=== PATIENT | male | born 1975 | race Two or more races ===

== ENCOUNTER 2025-03-04 02:28 | Inpatient (IN) | payer MEDICAID, SELFPAY ==
[2025-03-04] VITALS (13 sets, daily range): BP systolic 103–149; BP diastolic 72–113; PULSE 56–107; RESP 18–93; TEMP 36.4–36.7; O2SAT 92–98; BMI 22.9
--- NOTE | 2025-03-04 02:40 | EKG_ITS ---
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: : 1975 Requested By: ED Temporary Provider Order Number: [id number] Reading MD: ED Temporary Provider Measurements Intervals [place] Rate: 104 P: 59 NC: 171 QRS: -35 QRSD: 192 T: 93 QT: 397 QTc: 524 Interpretive Statements SINUS TACHYCARDIA LEFT ATRIAL ENLARGEMENT [-0.15mV P-WAVE IN V1/V2] INDETERMINATE AXIS LEFT BUNDLE BRANCH BLOCK [120+ ms QRS DURATION, 80+ ms Q/S IN V1/V2, 85+ ms R IN I/aVL/V5/V6] Compared to ECG 02/07/2020 16:38:37 Indeterminate axis now present Left bundle-branch block now present Sinus rhythm no longer present Intraventricular conduction delay no longer present /store/S0/[id number].pdf
--- NOTE | 2025-03-04 02:47 | PD.EDSOB ---
ED SOB =RME/HPI General Chief Complaint: Shortness of Breath/Dyspnea Stated Complaint: SOB Time Seen by Provider: 03/04/25 02:49 Arrival date/time: 03/04/25 02:28 RME / HPI RME / HPI Narrative: CC: Shortness of Breath Patient is a 50 year old male with a past medical history of hypertension, CHF HFrEF 20% (2019) w/ dilated cardiomyopathy w/ sever global hypokinesis, mild aortic, pulmonic and mild to moderate mitral regurgitation, moderate PHTN, hx of asthma, history of substance use disorder w/ meth and alcohol use disorder who presented via EMS with chief complain of shortness of breath that awake patient up from sleep. Patient stated shortness of breath has been on going for several days occurring at rest with some swelling of legs. Patient denied chest pain. Denied cough, fever or chills at home. Denied recent alcohol or illicit drug use. Patient deneid diarrhea. Denied hematemesis or hemotysis. No hematochezia or Melena in stool. Denied any syncope. Related Data Home Medications ?Medication ?Instructions ?Recorded ?Confirmed lisinopril 20 mg tablet 20 mg PO .QD 03/04/25 03/04/25 Previous Rx's ?Medication ?Instructions ?Recorded lisinopril 2.5 mg tablet 2.5 mg PO QDAY #30 tabs 02/08/20 Held on 03/04/25. Instructions: Doctor's Order Allergies Allergy/AdvReac Type Severity Reaction Status Date / Time No Known Allergies Allergy Verified 01/09/24 17:16 ED Exam Narrative Physical exam: General Appearance: Alert & Oriented X3, thin male who is lying in bed in no acute distress HEENT: Skull symmetrical and atraumatic. Conjunctivae pin and moist. Pupils equal, round, reactive to light and accommodation (PERRL). External ear without lesion or discharge. Straight, nares patient, mucosa pink, no discharge. Cardio: Tachy Rate and unable to appreciate S1 or S2 as there is a loud continuos murmur at sternal pulmonic aortic and mitral area. No bruits on carotid auscultation. Mild peripheral edema on lower extremities. Lungs: Symmetric with good expansion. Chest and back non-tender. Breath sounds vesicular without crackles, wheezing or rhonchi Abdomen: Non-tender, Non-distended, enlarged liver, Normal Reactive Bowel Sounds Neuro: Alert, cooperative, oriented to person, place, and time. Speech clear. CN grossly intact. Upper motor strength 5/5 and Lower motor strength 5/5. Sensation intact. Course Course Course Narrative: cbc cmp troponin ekg chest x-ray chest angio BNP Quality Measures none Orders Category Date Time Status CT Screening NOW Care 03/04/25 02:[address] Screening NOW Care 03/04/25 03:55 Completed EKG (ED ONLY) *Do not use* NOW Care 03/04/25 02:40 Completed Insert IV NOW Care 03/04/25 02:35 Active Straight [In and Out Catheter] X1 Care 03/04/25 02:[address] abdomen pelvis w con Stat Exams 03/04/25 03:[address] angio chest Stat Exams 03/04/25 02:59 Taken EKG (ED Only) Stat Exams 03/04/25 02:40 Draft US gall bladder Stat Exams 03/04/25 03:33 Taken US venous doppler LE BI Stat Exams 03/04/25 03:51 Taken XR chest 1V portable Stat Exams 03/04/25 03:30 Taken Alcohol, Blood Medical Stat Lab 03/04/25 02:50 Completed B-Type Natriuretic Peptide Stat Lab 03/04/25 02:50 Completed Bilirubin,Direct Stat Lab 03/04/25 02:50 Completed CBC Stat Lab 03/04/25 02:50 Completed Comprehensive Metabolic Panel Stat Lab 03/04/25 02:50 Completed D-Dimer Stat Lab 03/04/25 03:51 Ordered Drug Screen,Urine Stat Lab 03/04/25 02:45 Completed Free T4 (Free Thyroxine) Stat Lab 03/04/25 05:39 Ordered Hepatitis Acute Panel Stat Lab 03/04/25 02:50 Received LDH (Lactate Dehydrogenase) Stat Lab 03/04/25 02:50 Completed Lipase Stat Lab 03/04/25 02:50 Completed Magnesium Stat Lab 03/04/25 02:50 Completed Thyroid Stimulating Hormone Stat Lab 03/04/25 02:50 Completed Troponin I Stat Lab 03/04/25 02:50 Completed Troponin I Stat Lab 03/04/25 07:00 Ordered UA, C/S IF [Urinalysis, C/S if Indicated] Stat Lab 03/04/25 02:45 Completed Furosemide Inj [Lasix Inj] Med 03/04/25 03:53 Discontinued 80 mg IVP X1 ONE Metoprolol Tartrate [Lopressor] Med 03/04/25 02:56 Discontinued 25 mg PO X1 ONE Morphine* Inj Med 03/04/25 03:53 Discontinued 2 mg IV X1 ONE Nitroglycerin Oint 2% [Nitro-paste Oint 2%] Med 03/04/25 03:53 Discontinued 2 inch TOP X1 ONE Vital Signs Vital signs: Vital Signs Pulse Rate 107 H 03/04/25 02:33 Respiratory Rate 18 03/04/25 02:33 Blood Pressure 149/112 H 03/04/25 02:33 Pulse Oximetry (%) 98 03/04/25 02:33 Oxygen Delivery Method Room Air 03/04/25 02:33 Shortness of Breath / Dyspnea Patient data External records reviewed:: [facility] previous records Clinical information provided by:: patient Social determinants that could affect healthcare access:: substance use (hx of meth and alcohol use disorder ) Patient has the following chronic illnesses:: hypertension, CHF HFrEF 20% (2019) w/ dilated cardiomyopathy w/ sever global hypokinesis, mild aortic, pulmonic and mild to moderate mitral regurgitation, moderate PHTN, hx of asthma, history of substance use disorder w/ meth and alcohol use disorder How is presenting disease/condition affected by chronic disease/condition?: exacerbated by (CHF) Evaluation data The following diagnostics were reviewed and interpreted by me:: lab results and radiology exam(s) Lab and/or radiology exams considered but not ordered:: None Interpretation Summary: Patient has a past medical history of CHF HFrEF 20% (2019) and substance use disorder of alcohol use/meth who presented with a chief complain of shortness of breath. Loud murmur noted on physical exam, jvd, peripheral edema, and possible hematomegaly noted on physical exam as well. Concern for CHF exacerbation, previous Echo in 2019 noted to have an EF of 20% given CT Chest images of pleural effusion, cardiomegaly, and elevated BNP. CT chest anigo no PE or aortic dissection noted. Cardiovascular congestion on right ventricle, likely extending into the liver. US gallbladder-no CBC or stones noted. lasix 80 mg IV X 1 #CHF exacerbation HFrEF 20% (2019) Medications / Prescriptions Medications or Prescriptions considered but not ordered:: None Medication administrations:: Medication Administration History Discontinued Medications Furosemide (Furosemide Inj 10 Mg/Ml 4ml Vial) 80 mg IVP X1 ONE Stop: 03/04/25 03:54 Last Admin: 03/04/25 04:33 Dose: 80 mg Documented By: WHITLEY Metoprolol Tartrate (Metoprolol Tartrate 25 Mg Tablet) 25 mg PO X1 ONE Stop: 03/04/25 02:57 Last Admin: 03/04/25 03:16 Dose: 25 mg Documented By: WHITLEY Morphine Sulfate (Morphine Sulf Inj 4 Mg/Ml Vial) 2 mg IV X1 ONE Stop: 03/04/25 03:54 Last Admin: 03/04/25 04:30 Dose: Not Given Documented By: WHITLEY Non-Admin Reason: Patient Refused Nitroglycerin (Nitroglycerin Oint 2% 1 Inch Packet) 2 inch TOP X1 ONE Stop: 03/04/25 03:54 Last Admin: 03/04/25 04:30 Dose: 2 inch Documented By: WHITLEY same as above Consultations Consultation(s) initiated? (list below): No Diagnosis Shortness of Breath Differential Diagnosis: congestive heart failure, asthma with exacerbation and pulmonary embolism Most likely diagnosis given after review of the tests above:: Patient has a past medical history of CHF HFrEF 20% (2019) and substance use disorder of alcohol use/meth who presented with a chief complain of shortness of breath. Loud murmur noted on physical exam, jvd, peripheral edema, and possible hematomegaly noted on physical exam as well. Concern for CHF exacerbation, previous Echo in 2019 noted to have an EF of 20% given CT Chest images of pleural effusion, cardiomegaly, and elevated BNP. CT chest anigo no PE or aortic dissection noted. Cardiovascular congestion on right ventricle, likely extending into the liver. US gallbladder-no CBC or stones noted. lasix 80 mg IV X 1 #CHF exacerbation HFrEF 20% (2019) Admission Indicated Admission indicated?: indicated Admission Request Was there a request for admission?: Yes Admission Attestation Admission request attestation: Discussed case with Dr. James from Hospitalist service regarding admission. Discussed patients ED course, exam findings, labs, and radiology results. The Hospitalist agrees to accept the patient for admission. Disposition Plan Disposition Plan: Admit Discharge Plan Plan Patient Disposition: Admit Acute Care w/in Hospital Prescriptions/Referrals Prescriptions/Med Rec: No Action lisinopril 2.5 mg Tablet 2.5 mg PO QDAY Qty: 30 0RF lisinopril 20 mg tablet 20 mg PO .QD Patient Comments: TAKE 1 TABLET BY MOUTH EVERY DAY FOR 90 DAYS Referrals: No Primary/Family,Physician [Primary Care Provider] - In 1 week Problem List Clinical Impression: Acute exacerbation of CHF (congestive heart failure) Patient/Caregiver Discharge Instructions Print Language: Citizen Of [place] Stand Alone Forms: Deandra Award Info., Patient Portal Info Letter
[2025-03-04 02:58] LABS: Collection Type, Urine Clean Catch
--- NOTE | 2025-03-04 02:59 | XR_ITS ---
Examination: CTA chest with intravenous contrast 2-D reconstructions 3-D reconstructions, vascular Date and time of exam: March 04, 2025, 0403 hours INDICATIONS: Shortness of breath chest pain beginning 2 months ago CTDI: vol (mGy) 15.01 DLP: (mGycm) 328 Technique: Multiple axial sections of the thorax have been obtained. 3 mm slice thickness, from below the hemidiaphragms to above the apices of the lungs. Mediastinal and lung density settings have been obtained. 2-D sagittal and coronal reconstructions. 3-D angiographic renderings, 3-D volume renderings, 3D post processing, vascular maximum intensity projections obtained. Contrast administered is 100 cc Isovue-370. Low dose protocols were performed. One or more of the following dose reduction techniques were used; automated exposure control, adjustment of the mA and/or KV according to patient size, use of iterative reconstruction technique. Findings: No thoracic aortic aneurysm dilatation, thoracic aortic opacification is poor Pulmonary artery segments are not enlarged No pulmonary artery emboli Minimal right pleural fluid Moderate enlargement cardiac contour with vascular congestion and subtle edema at the lung bases Please see the CT abdomen pelvis report Mild thoracic spondylosis IMPRESSION: Mild heart failure Negative for pulmonary artery emboli Minimal right pleural fluid
[2025-03-04 03:08] LABS: Bilirubin,Urine 1+ (Negative); Blood,Urine Trace (Negative); Clarity,Urine Clear (Clear/Hazy); Color,Urine Yellow (Lt Yel-Yel); Culture Indicated,Urine Not Indicated; Glucose, Urine Negative (Negative); Hyaline Casts,Urine < 1 /hpf (0-1); Ketones,Urine Negative (Negative); Leukocyte Esterase,Urine Negative (Negative); Nitrite,Urine Negative (Negative); PH,Urine 6.5 (5.0-7.0); Protein,Urine 3+ (Neg - Trace); RBC,Urine 5 /hpf (0-3); Specific Gravity,Urine 1.031 (1.001-1.035); Squamous Epithelial Cell,Urine < 1 /hpf (0-5); Urobilinogen,Urine 4.0 mg/dL (0.0-1.0); WBC,Urine 2 /hpf (0-5)
[2025-03-04 03:10] LABS: Basophils # (Auto) 0.1 Thou/mm3 (0.0-0.2); Basophils % (Auto) 1 % (0-2.5); Eosinophils # (Auto) 0.2 Thou/mm3 (0.0-0.5); Eosinophils % (Auto) 2 % (0-10); Hematocrit 46.8 % (41.0-53.0); Hemoglobin 15.8 g/dL (13.5-16.0); Immature Granulocytes Auto 0.02 Thou/mm3 (0.00-0.00); Lymphocytes # (Auto) 2.1 Thou/mm3 (1.0-4.8); Lymphocytes % (Auto) 28 % (10-50); Mean Corpuscular HGB Conc 33.8 g/dl (31.0-37.0); Mean Corpuscular Hemoglobin 30.4 pg (25.0-35.0); Mean Corpuscular Volume 90 fL (80-100); Monocytes # (Auto) 0.6 Thou/mm3 (0.0-0.8); Monocytes % (Auto) 8 % (0-12); Neutrophils # (Auto) 4.6 Thou/mm3 (1.8-7.7); Neutrophils % (Auto) 61 % (37-80); Nucleated Red Blood Cell # 0.00 Thou/mm3 (0.00-0.00); Nucleated Red Blood Cell % 0 /100 WBC (0); Platelet Count 238 Thou/mm3 (140-440); RDW Standard Deviation 50.2 fL (35.1-43.9); Red Blood Count 5.20 Miln/mm3 (4.50-5.90); White Blood Count 7.5 Thou/mm3 (3.8-10.6)
[2025-03-04 03:14] LABS: Amphetamine/Methamp Scrn,U Negative (Negative); Barbiturate Screen,Urine Negative (Negative); Benzodiazepines Screen,Urine Negative (Negative); Benzoylecgonine Screen, Ur Negative (Negative); Fentanyl Screen,Urine Negative (Negative); Opiate Screen,Urine Negative (Negative); THC Screen,Urine Negative (Negative)
[2025-03-04] MEDS: METOPROLOL TARTRATE 25 MG TABLET PO (03:16)
[2025-03-04 03:28] LABS: Alanine Aminotransferase 24 U/L (10-49); Albumin, Serum 4.3 gm/dL (3.5-5.0); Albumin/Globulin Ratio 1.8 (1.2-2.2); Alcohol, Blood Medical < 3.0 mg/dL (0-10.0); Alkaline Phosphatase 177 U/L (46-116); Anion Gap 11 (7-16); Aspartate Amino Transferase 35 U/L (0-34); BUN/Creatinine Ratio 14 Ratio (12-20); Bilirubin,Total 1.8 mg/dL (0.3-1.2); Blood Urea Nitrogen 18 mg/dL (9-23); Calcium 9.1 mg/dL (8.3-10.6); Calcium (Corrected) 9.1 mg/dL (8.5-10.1); Carbon Dioxide 23.0 mMol/L (20.0-31.0); Chloride 105 mMol/L (98-107); Creatinine (Component) 1.3 mg/dL (0.6-1.3); Estimated Creatinine Clearance 69.0 mL/min (>60); Globulin 2.4 gm/dL (2.3-3.5); Glucose 109 mg/dL (74-106); LDH (Lactate Dehydrogenase) 315 U/L (120-246); Lipase 44 U/L (12-53); Magnesium 1.9 mg/dL (1.6-2.6); Osmolality,Calculated 280 (275-295); Potassium 4.4 mMol/L (3.4-5.1); Sodium 139 mMol/L (136-145); Total Protein 6.7 gm/dL (5.7-8.2); eGFR > 60 See Note
--- NOTE | 2025-03-04 03:30 | XR_ITS ---
EXAMINATION: AP chest single view TECHNIQUE: AP portable upright chest single view Date and time: March 04, 2025, 0332 hours, comparison February 22, 2020 INDICATIONS: Shortness of breath chest pain today. FINDINGS: Mild heart failure Moderate enlargement cardiac contour, prominent vascular congestion with perihilar basilar edema Prominent osteopenia IMPRESSION: Mild heart failure
[2025-03-04 03:31] LABS: Troponin I 0.049 ng/mL (0.0-0.045)
--- NOTE | 2025-03-04 03:33 | XR_ITS ---
Examination: Abdomen sonogram, Limited Date and time of exam: March 04, 2025, 0447 hours INDICATIONS: Elevated bilirubin on laboratory examination today Technique: Real-time rowan scale transabdominal sonographic images of the upper abdomen obtained. Findings: Internal debris in the gallbladder consistent with sludge There is fluid around the gallbladder wall with thickening of the gallbladder wall at least 38 mm Common bile duct 0.3 cm Pancreatic head 2.3 cm Hepatomegaly 17.4 cm fatty infiltration Normal hepatopetal portal venous flow Patent IVC IMPRESSION: Gallbladder sludge, negative for gallstones Gallbladder wall is thickened with fluid around the gallbladder which may relate to ascites, clinical correlation advised As clinically warranted, HIDA scan or MRCP follow-up would best assess for cholecystitis
[2025-03-04 03:49] LABS: B-Type Natriuretic Peptide > 3280 pg/mL (0-100)
--- NOTE | 2025-03-04 03:51 | XR_ITS ---
Examination: Venous duplex lower extremity sonogram, bilateral. Date and time of exam: March 04, 2025, 0455 hours INDICATIONS: Right leg swelling and pain beginning 5 days ago with shortness of breath Technique: Multiple sonographic images of the deep venous system have been obtained. B-mode/2-D grayscale imaging of vascular structures and Doppler spectral analysis (waveforms) and color performed Both legs are examined. Findings: Deep venous systems do not demonstrate abnormal echogenicity. All visualized deep veins exhibit compressibility. Impression: No DVT demonstrated
--- NOTE | 2025-03-04 03:55 | XR_ITS ---
Examination: CT abdomen with intravenous contrast CT pelvis with intravenous contrast 2-D coronal reconstructions 2-D sagittal reconstructions Date and time of exam: March 04, 2025, 0404 hours INDICATIONS: Onset abdominal pain today. CTDI: vol (mGy) 6.46 DLP: (mGycm) 377 Technique: Multiple axial sections of the abdomen and pelvis have been obtained. 64 slice high-resolution scanner used. 3 mm axial sections have been obtained, post intravenous injection 60 cc Isovue-370 2-D sagittal, coronal reconstructions obtained. Low dose protocols were performed. One or more of the following dose reduction techniques were used; automated exposure control, adjustment of the mA and/or KV according to patient size, use of iterative reconstruction technique. Findings: Small right pleural effusion, moderate enlargement cardiac contour with vascular congestion Fatty infiltration throughout the liver the liver is irregular in contour Spleen not enlarged Mild ascites Gallbladder wall appears thickened No pancreatic mass Aorta is normal in size No bowel obstruction Scarring involving the kidneys No diverticulitis Normal appendix Free fluid in the pelvis Urinary bladder intact Mild prostatomegaly Moderate osteopenia IMPRESSION: Primary bowel cellular disease Mild ascites. Gallbladder wall appears thickened and edematous, consider HIDA scan or MRCP follow-up
[2025-03-04] MEDS: NITROGLYCERIN OINT 2% 1 INCH PACKET 2 INCH TOP (04:30)
[2025-03-04] MEDS: FUROSEMIDE INJ 10 MG/ML 4ML VIAL 80 MG IVP (04:33)
[2025-03-04 04:44] LABS: Bilirubin,Direct 0.9 mg/dL (0.0-0.3); Thyroid Stimulating Hormone 5.97 uIU/mL (0.55-4.78)
--- NOTE | 2025-03-04 04:59 | PRELIM_ITS ---
CT angiogram of the chest with intravenous contrast (axial sections with sagittal and coronal reformats) March 04, 2025 0404 hours Clinical History: SOB Technique:Helical axial sections with sagittal and coronal reformats of the chest were obtained with intravenous contrast. Iterative reconstruction technique was employed to reduce patient radiation exposure. 3D/MIP reconstructed images were also provided. Comparison: No prior study is available for comparison. Findings: There is no filling defect within the pulmonary artery divisions to suggest pulmonary thromboembolism. The mediastinum demonstrates no evidence of mass or lymphadenopathy. The thoracic aorta is unremarkable. There is no pericardial effusion. There is mild cardiomegaly. Bibasilar dependent atelectasis is present.There is a calcified nodule in the left upper lobe, measuring 3.5 mm, with smooth margin. There is a small right pleural effusion.No evidence of ppneumothorax. The osseous structures are unremarkable. Impression: No CT evidence of pulmonary thromboembolism . Small right pleural effusion. Mild cardiomegaly. Other findings as described above. Report on CT Abdomen & Pelvis w/ Contrast to follow. Report Electronically Signed By: Ashley Taylor 03/04/2025 4:57:57 AM [EST]
--- NOTE | 2025-03-04 06:01 | PRELIM_ITS ---
CT scan of the abdomen and pelvis with intravenous contrast (axial sections with sagittal and coronal reformats) March 04, 2025 0404 hours Clinical History: Abdominal pain. No prior study is available for comparison. Findings: There is trace right pleural effusion. Subsegmental atelectasis is noted at the lung bases. There is mild interstitial septal thickening in the lungs, which may represent interstitial pulmonary edema. There is moderate cardiomegaly. There is fatty infiltration of the liver. The gallbladder is partially contracted and demonstrates apparent wall thickening, with trace pericholecystic fluid. Nonspecific perinephric fat stranding is noted bilaterally. There are punctate non-obstructing bilateral renal calculi. There is no ureteric calculus or hydroureteronephrosis. Multifocal scarring is noted in both kidneys, which may represent sequelae of chronic pyelonephritis. The pancreas, spleen and adrenals are unremarkable. No evidence of bowel obstruction. A moderate amount of fecal material is present in the colon. The appendix is within normal limits ( axial images 129- 134/280 ) . There are multiple colonic diverticula without evidence of diverticulitis. There is no mesenteric or retroperitoneal adenopathy. The urinary bladder is incompletely distended at the time of the examination and appears mildly thick walled. There is minimal ascites. There is no free air or abscess. The osseous structures are unremarkable. Impression: No evidence of bowel obstruction, free air or abscess. Minimal ascites. Partially contracted gallbladder with apparent wall thickening and trace pericholecystic fluid, likely apparent due to fluid overload status ; however, the possibility of acute cholecystitis cannot be entirely excluded. Recommend further evaluation with sonography, if clinically indicated. Features of congestive heart failure. Other findings as described above. Report Electronically Signed By: Ashley Taylor 03/04/2025 6:01:19 AM [EST]
--- NOTE | 2025-03-04 06:15 | ECHO_ITS ---
Patient Info Name: Yash Lo Age: 50 years : 1975 Gender: Male Ht: 178 cm Wt: 73 kg BSA: 1.89 m2 BP: 114 / 75 mmHg Heart Rhythm: Sinus Rhythm Exam Date: 03/04/2025 1:24 PM Admit Date: 03/04/2025 Site: [facility] Patient Status: I Technical Quality: Fair Exam Type: CA echo doppler complete Sap Bw Architect: Priya Joshi Ordering Physician: Keyon Crouch Study Info Indications CHF exacerbation - Primary Location: [id number] Left Ventricular Outflow Tract Name Value Normal LVOT 2D LVOT Diameter 1.8 cm LVOT Doppler LVOT Peak Velocity 72 cm/s LVOT Mean Gradient 1 mmHg LVOT VTI 12 cm LVOT VTI/AV VTI Ratio 0.6 LVOT Stroke Volume 29 ml Pulmonic Valve Name Value Normal PV Doppler PV Peak Velocity 92 cm/s Mitral Valve Name Value Normal MV Annular TDI MV Septal e' Velocity 1.7 cm/s MV Lateral e' Velocity 6.1 cm/s MV e' Average 3.85 cm/s Tricuspid Valve Name Value Normal TV Regurgitation Doppler TR Peak Velocity 247 cm/s Estimated PAP/RSVP RA Pressure 15 mmHg <=5 PA Systolic Pressure 4,539 mmHg <36 RV Systolic Pressure 39 mmHg <36 TV Annular TDI TV Lateral Tammie s' Velocity 10.7 cm/s >=9.5 Aorta Name Value Normal Ascending Aorta Ao Root Diameter (MM) 2.3 cm Ao Root Diam Index (MM) 1.2 cm/m2 Aortic Valve Name Value Normal AV 2D/MM AV Cusp Sep (MM) 2.0 cm AV Doppler AV Peak Velocity 112 cm/s AV Mean Gradient 2 mmHg AV VTI 21 cm AV Area (Cont Eq VTI) 1.4 cm2 >=3.0 AV Area (Cont Eq Gerson) 1.6 cm2 AV DI (Gerson) 0.65 AV Regurgitation 2D LVOT Area 2.5 cm2 Ventricles Name Value Normal LV Dimensions 2D/MM IVS Diastolic Thickness (2D) 0.6 cm 0.6-1.0 LVID Diastole (2D) 8.5 cm 4.2-5.8 LVIW Diastolic Thickness (2D) 0.8 cm 0.6-1.0 LVID Systole (2D) 7.4 cm 2.5-4.0 LVOT Diameter 1.8 cm LV Mass (2D Cubed) 296.94 g 88.00-224.00 LV Mass Index (2D Cubed) 157 g/m2 49-115 Relative Wall Thickness (2D) 0.19 <=0.42 IVS/LVIW Diastolic Thickness (2D) 0.75 0.00-1.50 LV Fractional Shortening/Ejection Fraction 2D/MM LV Fractional Shortening (2D) 13 % 25-43 LV EF (2D Teichholz) 27 % LV Diastolic Volume (4C MOD) 267 ml LV EF (4C MOD) 16 % LV Diastolic Volume (2C MOD) 335 ml LV EF (2C MOD) 18 % LV Diastolic Volume (BP MOD) 306 ml 62-150 LV Diastolic Volume Index (BP MOD) 161 ml/m2 34-74 LV Systolic Volume (BP MOD) 251 ml 21-61 LV Systolic Volume Index (BP MOD) 132 ml/m2 11-31 LV EF (BP MOD) 18 % 52-72 LV Diastolic Length (4C) 8.7 cm LV Systolic Length (4C) 9.1 cm LV Stroke Volume (4C MOD) 42 ml RV Dimensions 2D/MM TV Lateral Tammie s' Velocity 10.7 cm/s >=9.5 Atria Name Value Normal LA Dimensions LA Volume (4C A-L) 93 ml LA Volume (BP A-L) 105 ml Left Ventricle Left ventricular chamber dimension is severely enlarged. Left ventricular systolic function is severely reduced with visually estimated ejection fraction of 10-15%. There is normal geometry noted in the left ventricle. Left ventricular segmental wall motion is normal. There is indeterminate diastolic function in the left ventricle. Right Ventricle Right ventricular chamber dimension is mildly enlarged. Right ventricular systolic function is normal. Left Atrium Left atrial chamber dimension is normal. Right Atrium Right atrial chamber dimension is normal. Aortic Valve The aortic valve is trileaflet. There is no aortic valve sclerosis. There is no aortic valve stenosis with a peak velocity of 112 cm/s, mean gradient of 2 mmHg, and aortic valve area of 1.4 cm2. There is trace aortic valve regurgitation. Pulmonic Valve The pulmonic valve is normal. There is no pulmonic valve stenosis. There is no pulmonic regurgitation. Mitral Valve The mitral valve has normal leaflets. There is no mitral valve stenosis. There is mild to moderate mitral valve regurgitation. Tricuspid Valve The tricuspid valve leaflets are normal. There is no tricuspid valve stenosis. There is mild tricuspid valve regurgitation. Pulmonary hypertension, estimated pulmonary arterial systolic pressure is 4539 mmHg and systemic blood pressure of 114 mmHg in systole. Pericardium/Pleural The pericardium appears normal. There is no pericardial effusion. No pleural effusion visualized. Inferior Vena Cava Dilated inferior vena cava with >50% collapse upon inspiration consistent with normal right atrial pressure, 15 mmHg. Aorta The aortic measurements are indexed to age and body surface area. Summary 1. The echocardiogram is normal by two-dimensional, color flow imaging, and Doppler interrogation. 2. Left ventricle size is severely enlarged and systolic function is severely reduced. Estimated ejection fraction is 10-15%. There is indeterminate diastolic function. 3. Right ventricle chamber size is mildly enlarged and systolic function is normal. Estimated RVSP is 45- 50 mm hg. 4. There is mild to moderate mitral valve regurgitation. mild TR. Trace AI. 5. Dilated IVC with estimated RA pressure 15 mmHg. Trace to small pericardial effusion with no tamponade. Report Signatures Finalized by German Sue on 03/04/2025 04:28 PM
--- NOTE | 2025-03-04 06:20 | PD.RESHP ---
Documentation for date of: 03/04/25 [facility] History of Present Illness History of present illness: 50-year-old male with a history of hypertension, CHF (LVEF 20% due to dilated cardiomyopathy), mild aortic and pulmonic regurgitation, [id number] mitral regurgitation, moderate pulmonary hypertension, asthma, and substance use disorder (methamphetamine and alcohol) presents via EMS with a chief complaint of shortness of breath that woke him from sleep. His symptoms have been ongoing for several days, occurring at rest, and are associated with bilateral leg swelling, which began 5 days ago with ankle edema. He is able to walk 1 mile but is unsure if he can manage a flight of stairs. He denies chest pain, cough, fever, chills, recent alcohol or drug use, diarrhea, hematemesis, hemoptysis, or changes in stool (no hematochezia or melena), and has had no episodes of syncope. ED course: Initial vitals include T 98.1, BP 149/112, HR 107, RR 18, 98% on room air. CBC unremarkable. CMP shows creatinine 1.3, T. bili 1.8, T. bili 0.9, AST 35, alk phos 177, lactate dehydrogenase 315, troponin 0.049, BNP greater than 3280. TSH 5.97. In ED patient received metoprolol 25 mg, nitroglycerin patch, morphine 2 mg, furosemide 80 mg. Past medical history: As stated above. Allergies: NKDA Family history: Noncontributory. Social history: No alcohol use for past month however used extensive alcohol previously, unsure of smoking, used meth for 10 years and last used 5 months ago. Patient admitted for acute exacerbation of CHF. Review of Systems Review of Systems Narrative Review of Systems: All systems reviewed negative unless stated otherwise above. Exam Vital Signs Temp Pulse Resp BP Pulse Ox O2 Del Method 97.8 F 77 19 139/103 H 96 Room Air 03/04/25 04:44 03/04/25 04:44 03/04/25 04:44 03/04/25 04:44 03/04/25 04:44 03/04/25 04:44 Narrative Exam General: AOx3, no acute distress, able to speak full sentences, Hungarian speaking HEENT: NC/AT, mucous membranes moist, bilateral sclera anicteric Cardiovascular: regular rate and rhythm, S1/S2 present, tricuspid regurg Pulmonary: clear to auscultation bilaterally, no rales/rhonchi/wheezes Abdominal: soft, non-tender, non-distended, no rebound/guarding, normal bowel sounds present, significant hepatomegaly Musculoskeletal: normal ROM, bilateral 2+ pitting edema to mid shins Skin: warm and dry, intact, no rashes, Neuro: CN II-XII intact, no focal deficits Results: Labs 03/05/25 05:49 03/05/25 05:49 Labs: Short CBC 03/04/25 Range/Units 02:50 WBC 7.5 (3.8-10.6) Thou/mm3 Hgb 15.8 (13.5-16.0) g/dL Hct 46.8 (41.0-53.0) % Plt Count 238 (140-440) Thou/mm3 BMP 03/04/25 02:50 Sodium 139 Potassium 4.4 Chloride 105 Carbon Dioxide 23.0 BUN 18 Creatinine 1.3 Glucose 109 H Calcium 9.1 Cardiac Enzymes 03/04/25 Range/Units 02:50 Troponin I 0.049 H* (0.0-0.045) ng/mL Liver Function 03/04/25 Range/Units 02:50 Total Bilirubin 1.8 H (0.3-1.2) mg/dL Direct Bilirubin 0.9 H (0.0-0.3) mg/dL AST 35 H (0-34) U/L ALT 24 (10-49) U/L Alkaline Phosphatase 177 H (46-116) U/L Albumin 4.3 (3.5-5.0) gm/dL Urine 03/04/25 Range/Units 02:45 Urine Color Yellow (Lt Yel-Yel) Urine Clarity Clear (Clear/Hazy) Urine pH 6.5 (5.0-7.0) Ur Specific [place] 1.031 (1.001-1.035) Urine Protein 3+ A (Neg - Trace) Urine Glucose (UA) Negative (Negative) Quality Measures Quality Measures VTE prophylaxis Medications Home Medications and Allergies Home Medications ?Medication ?Instructions ?Recorded ?Confirmed ?Type lisinopril 20 mg tablet 20 mg PO .QD 03/04/25 03/04/25 History Allergies Allergy/AdvReac Type Severity Reaction Status Date / Time No Known Allergies Allergy Verified 01/09/24 17:16 Visit Medications Acetaminophen (Acetaminophen 325 Mg Tablet) 650 mg PO Q6H PRN PRN Reason: Fever >100.4 or pain (1-3) Stop: 04/03/25 06:11 Dapagliflozin (Dapagliflozin Propanediol 5 Mg Tablet) 10 mg PO QAM [facility] Stop: 04/03/25 08:59 Furosemide (Furosemide Inj 10 Mg/Ml Vial 2 Ml) 40 mg IVP TID [facility] Stop: 04/03/25 11:59 Heparin Sodium (Porcine) (Heparin Sod Inj 5000 Unit/Ml Vial) 5,000 unit SC Q8HR [facility] Stop: 03/18/25 06:29 Ondansetron HCl (Ondansetron Inj 2 Mg/Ml Inj 2 Ml) 4 mg IVP Q6H PRN; Protocol PRN Reason: NAUSEA OR VOMITING Stop: 04/03/25 06:11 Sennosides (Senna Tablet) 1 tab PO QDAY [facility]; Protocol Stop: 04/03/25 08:59 Discontinued Medications Furosemide (Furosemide Inj 10 Mg/Ml 4ml Vial) 80 mg IVP X1 ONE Stop: 03/04/25 03:54 Last Admin: 03/04/25 04:33 Dose: 80 mg Metoprolol Tartrate (Metoprolol Tartrate 25 Mg Tablet) 25 mg PO X1 ONE Stop: 03/04/25 02:57 Last Admin: 03/04/25 03:16 Dose: 25 mg Morphine Sulfate (Morphine Sulf Inj 4 Mg/Ml Vial) 2 mg IV X1 ONE Stop: 03/04/25 03:54 Last Admin: 03/04/25 04:30 Dose: Not Given Nitroglycerin (Nitroglycerin Oint 2% 1 Inch Packet) 2 inch TOP X1 ONE Stop: 03/04/25 03:54 Last Admin: 03/04/25 04:30 Dose: 2 inch Assessment & Plan Plan 50-year-old male with hypertension, CHF (LVEF 20%), dilated cardiomyopathy, mild valve regurgitation, pulmonary hypertension, asthma, and substance use disorder (methamphetamine and alcohol) presents via EMS with shortness of breath. Patient admitted for acute exacerbation of CHF. #Acute CHF exacerbation Patient presenting with worsening SOB, orthonpnea need to sleep at angle, worsening LE swelling. No crackles but noted to have JVD on exam, pitting edema +2. He has past meth use, quit 5 months ago. Patient gave up drinking 1-2 months ago. Otherwise used to get drunk daily. Vitals stable, Cr 1.3, glucose 109, Mg 1.9, BNP greater than 3280. He received 80 mg IV Lasix in the ED. Echo from 02/08/2020 showed EF 20%, moderate tricuspid regurgitation, moderate pulmonary hypertension. Plan - Cardiology consulted, appreciate recommendations - Echo pending - IV lasix 40mg TID - Start dapagliflozin 10 mg daily - Daily weights - Place Vega - Strict INOs - Low sodium diet - Restrict fluid to 1.8L - Keep potassium >4, mag >2 - Daily CBC, CMP #NSTEMI, type II Patient denies any chest pain. EKG negative for any acute ischemic ST changes, rate 104, QTc 524. Troponins on admission 0.049 Plan - Trend troponins every 6 hours - Placed order after 7 AM draw if continued uptrend #Hyperbilirubinemia Br 1.8 on admission. Direct 0.9 Likely in setting of congestion and alcohol use. Anticipate improvement with diuresis. Has no abdominal pain on exam. Preliminary read negative for any stones. Plan - Daily CMP #Hx of recreational drug use #Hx of methamphetamine use Patient counseled extensively regarding recreational drug use. Reports feeling ready to quit. Referral to social service manager. Health Maintenance: Diet: Cardiac diet, fluid restriction 1.8 L GI prophylaxis: None DVT prophylaxis: Heparin 5000u SC every 8 hours Antibiotics: None CODE STATUS: Full Disposition: Telemetry Case discussed with my attending Dr. Gross, and senior resident, Dr. Jacob Crouch MD PGY-1 Attending Provider Attestation/Addendum After examination of the patient and review of the clinical data I feel that this patient needs admission to the hospital for further treatment/evaluation. Plan of care discussed with patient and is in agreement. I Francisco Gross MD, attest that I was physically present for pickard portions of evaluation, and examined patient, labs and imagings and plan of care were discussed with IM residents team, and I agree with the findings and plans documented above.
--- NOTE | 2025-03-04 06:26 | PRELIM_ITS ---
Right upper quadrant abdominal ultrasound. March 04, 2025 AT 0447 hours Clinical history: Elevated T.bili. Technique: Grayscale and color flow images of the right upper quadrant are provided. Hepatic and portal veins were also imaged with color flow images. Comparison: Correlated with prior CT abdomen and pelvis study performed earlier today. Findings: The liver is borderline enlarged, measuring 17.4 cm in length, demonstrates increased echogenicity and heterogeneous echotexture, with smooth borders. No intrahepatic biliary ductal dilatation. No gallbladder calculus is demonstrated. The gallbladder wall is thickened and edematous , measuring 4 mm. Complex internal debris is noted in the gallbladder. The common bile duct is normal in caliber at 3 mm. The pancreas is unremarkable to the extent visualized. Impression: Complex gallbladder sludge. Mild gallbladder wall thickening with edema. No evidence of cholelithiasis. The possibility of acute cholecystitis cannot be excluded. Suggest follow-up with HIDA scan, if clinically indicated. Borderline hepatomegaly with fatty infiltration. Report Electronically Signed By: Ashley Taylor 03/04/2025 6:25:25 AM [EST]
--- NOTE | 2025-03-04 06:26 | PRELIM_ITS ---
Bilateral lower extremity venous Doppler ultrasound. March 04, 2025 0455 hours Clinical history: Swelling. Technique: Duplex scan of the bilateral lower extremity deep venous systems was performed utilizing 2D grayscale imaging, Doppler spectral analysis and color flow Doppler and with compression. Comparison: No prior study is available for comparison. Findings: Alves scale, color flow and spectral Doppler evaluation of the lower extremity deep veins was performed. Right: The common femoral, superficial femoral and popliteal veins are patent and compressible. The calf veins to the extent visualized are patent. Normal respiratory variation is noted. There is no evidence of occlusive or nonocclusive thrombus. The great saphenous vein is patent at the level of the s aphenofemoral junction. Left: The common femoral, superficial femoral and popliteal veins are patent and compressible. The calf veins to the extent visualized are patent. Normal respiratory variation is noted. There is no evidence of occlusive or nonocclusive thrombus. The great saphenous vein is patent at the level of the sa phenofemoral junction. Impression: No sonographic evidence of deep venous thrombosis in both lower extremities. Report Electronically Signed By: Ashley Taylor 03/04/2025 6:25:21 AM [EST]
[2025-03-04] MEDS: HEPARIN SOD INJ 5000 UNIT/ML VIAL SC ×2 (06:39→20:43)
[2025-03-04 06:48] LABS: Hepatitis A Antibody IgM Non Reactive (Non React); Hepatitis B Core Antibody IgM Non Reactive (Non React); Hepatitis B Surface Antigen Non Reactive (Non React); Hepatitis C Antibody Non Reactive (Non React)
[2025-03-04 07:15] LABS: Glucose Estimated Average 126 mg/dL (80-131); Hemoglobin A1C 6.0 % Hgb (4.8-6.0)
[2025-03-04 07:19] LABS: Base Excess 0 (-3-3); HCO3 23 mEq/L (20-26); Inspired Oxygen, FIO2 21 %; O2 Saturation 99 % (91-98); PCO2 32 mmHg (32.0-48.0); PO2 95 mmHg (83-108); pH, Arterial 7.46 (7.35-7.45)
[2025-03-04 07:21] LABS: Allen Test Performed/OK; Puncture Site Left Radial
[2025-03-04 07:36] LABS: D-Dimer 522 ng/mL (<600)
[2025-03-04 08:00] LABS: Free T4 (Free Thyroxine) 1.51 ng/dL (0.89-1.76)
[2025-03-04 08:10] LABS: Troponin I 0.050 ng/mL (0.0-0.045)
--- NOTE | 2025-03-04 08:19 | ESPR_ITS ---
Documentation for date of: 03/04/25 Subjective Subjective Interval history: pt seen and examined at bedside he states that his breathing is much improved from when he came in, but that he is still unable to tolerate laying flat continues with IV diuresis, lasix bid marked improvement of BLE, edema to the ankles 2+. pt states that he was unable to ever go to [facility] who he was refered to in [place] because it was too far echo with 10-15 ef today Exam Vital Signs Temp Pulse Resp BP Pulse Ox O2 Del Method 97.9 F 74 20 138/113 H 97 Room Air 03/04/25 06:38 03/04/25 06:38 03/04/25 06:38 03/04/25 06:38 03/04/25 06:38 03/04/25 06:38 Narrative Exam GENERAL: no acute distress, AAO x3, well nourished. HEENT: Head AT/ NC. Mucous membranes moist. PERRL. JVD at the scm NECK: Supple, no lymphadenopathy, no carotid bruits. CARDIOVASCULAR: RRR. Normal S1/S2, No m/r/g. 2 + pitting edema of bilateral LEs to the ankes RESPIRATORY: trace crackles most appreciated in the mid lung white bilaterally GASTROINTESTINAL: Abdomen soft, non tender no palpable masses. Bowel sounds present in all 4 quadrants. MUSCULOSKELETAL:? No cyanosis no visible joint swelling. NEUROLOGICAL: CN II-XII grossly intact. No focal deficits. Sensation intact, symmetric. PSYCHIATRIC: Awake and alert, not agitated, normal mood and affect. INTEGUMENTARY: No obvious rashes, no jaundice, normal turgor. Objective Labs 03/04/25 02:50 03/04/25 02:50 Labs: Laboratory Results - last 24 hr 03/04/25 03/04/25 03/04/25 02:45 02:50 06:50 WBC 7.5 RBC 5.20 Hgb 15.8 Hct 46.8 MCV 90 MCH 30.4 MCHC 33.8 RDW Std Deviation 50.2 H Plt Count 238 Neut % (Auto) 61 Lymph % (Auto) 28 [place] % (Auto) 8 Eos % (Auto) 2 Baso % (Auto) 1 Neut # (Auto) 4.6 Lymph # (Auto) 2.1 [place] # (Auto) 0.6 Eos # (Auto) 0.2 Baso # (Auto) 0.1 Immature Gran # (Auto) 0.02 H Absolute Nucleated RBC 0.00 Immature Gran % 0 Nucleated RBC % 0 D-Dimer 522 Puncture Site ABG pH ABG pCO2 ABG pO2 ABG HCO3 ABG O2 Saturation ABG Base Excess FiO2 Sodium 139 Potassium 4.4 Chloride 105 Carbon Dioxide 23.0 Anion Gap 11 BUN 18 Creatinine 1.3 Estim Creat Clear Calc 69.0 eGFR > 60 BUN/Creatinine Ratio [address] Glu mg/dL 126 Hemoglobin A1c 6.0 Calculated Osmolality 280 Calcium 9.1 Corrected Calcium 9.1 Magnesium 1.9 Total Bilirubin 1.8 H Direct Bilirubin 0.9 H AST 35 H ALT 24 Alkaline Phosphatase 177 H Lactate Dehydrogenase 315 H Troponin I 0.049 H* 0.050 H* B-Natriuretic Peptide > 3280 H* Total Protein 6.7 Albumin 4.3 Globulin 2.4 Albumin/Globulin Ratio 1.8 Lipase 44 TSH 5.97 H Free T4 1.51 Ur Collection Type Clean Catch Urine Color Yellow Urine Clarity Clear Urine pH 6.5 Ur Specific [place] 1.031 Urine Protein 3+ A Urine Glucose (UA) Negative Urine Ketones Negative Urine Blood Trace Urine Nitrite Negative Urine Bilirubin 1+ A Urine Urobilinogen (Auto) 4.0 Ur Leukocyte Esterase Negative Urine RBC 5 H Urine WBC 2 Ur Squamous Epith Cells < 1 Urine Bacteria None Hyaline Casts < 1 Ur Culture Indicated? Not Indicated Urine Opiates Screen Negative Urine Fentanyl Screen Negative Ur Barbiturates Screen Negative U Amphetamin/Meth Scrn Negative U Benzodiazepines Scrn Negative U Cocaine Metab Screen Negative U Marijuana (THC) Screen Negative Ethyl Alcohol < 3.0 Hepatitis A IgM Ab Non Reactive Hep Bs Antigen Non Reactive Hep B Core IgM Ab Non Reactive Hepatitis C Antibody Non Reactive 03/04/25 07:15 WBC RBC Hgb Hct MCV MCH MCHC RDW Std Deviation Plt Count Neut % (Auto) Lymph % (Auto) [place] % (Auto) Eos % (Auto) Baso % (Auto) Neut # (Auto) Lymph # (Auto) [place] # (Auto) Eos # (Auto) Baso # (Auto) Immature Gran # (Auto) Absolute Nucleated RBC Immature Gran % Nucleated RBC % D-Dimer Puncture Site Left Radial ABG pH 7.46 H ABG pCO2 32 ABG pO2 95 ABG HCO3 23 ABG O2 Saturation 99 H ABG Base Excess 0 FiO2 21 Sodium Potassium Chloride Carbon Dioxide Anion Gap BUN Creatinine Estim Creat Clear Calc eGFR BUN/Creatinine Ratio Glucose Estimated Ave Glu mg/dL Hemoglobin A1c Calculated Osmolality Calcium Corrected Calcium Magnesium Total Bilirubin Direct Bilirubin AST ALT Alkaline Phosphatase Lactate Dehydrogenase Troponin I B-Natriuretic Peptide Total Protein Albumin Globulin Albumin/Globulin Ratio Lipase TSH Free T4 Ur Collection Type Urine Color Urine Clarity Urine pH Ur Specific [place] Urine Protein Urine Glucose (UA) Urine Ketones Urine Blood Urine Nitrite Urine Bilirubin Urine Urobilinogen (Auto) Ur Leukocyte Esterase Urine RBC Urine WBC Ur Squamous Epith Cells Urine Bacteria Hyaline Casts Ur Culture Indicated? Urine Opiates Screen Urine Fentanyl Screen Ur Barbiturates Screen U Amphetamin/Meth Scrn U Benzodiazepines Scrn U Cocaine Metab Screen U Marijuana (THC) Screen Ethyl Alcohol Hepatitis A IgM Ab Hep Bs Antigen Hep B Core IgM Ab Hepatitis C Antibody ABG Interpretation ABG results: 03/04/25 07:15 ABG pH 7.46 H ABG pCO2 32 ABG pO2 95 ABG HCO3 23 ABG O2 Saturation 99 H ABG Base Excess 0 Quality Measures Quality Measures VTE prophylaxis Assessment & Plan Assessment Current Active Medications: Generic Name Dose Route Start Last Admin Trade Name Freq PRN Reason Stop Dose Admin Acetaminophen 650 mg 03/04/25 06:12 Acetaminophen 325 Mg Tablet PO 04/03/25 06:11 Q6H PRN Fever >100.4 or pain (1-3) Dapagliflozin 10 mg 03/04/25 09:00 Dapagliflozin Propanediol 5 Mg Tablet PO 04/03/25 08:59 QAM [facility] Furosemide 40 mg 03/04/25 12:00 Furosemide Inj 10 Mg/Ml Vial 2 Ml IVP 04/03/25 11:59 TID [facility] Heparin Sodium (Porcine) 5,000 unit 03/04/25 06:30 03/04/25 06:39 Heparin Sod Inj 5000 Unit/Ml Vial SC 03/18/25 06:29 5,000 unit Q8HR MARY Administration Ondansetron HCl 4 mg 03/04/25 06:12 Ondansetron Inj 2 Mg/Ml Inj 2 Ml IVP 04/03/25 06:11 Q6H PRN NAUSEA OR VOMITING Protocol Sennosides 1 tab 03/04/25 09:00 Senna Tablet PO 04/03/25 08:59 QDAY [facility] Protocol Plan 50-year-old male with hypertension, CHF (LVEF 20%), dilated cardiomyopathy, mild valve regurgitation, pulmonary hypertension, asthma, and substance use disorder (methamphetamine and alcohol) presents via EMS with shortness of breath. Patient admitted for acute exacerbation of CHF. 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 No crackles but noted to have JVD on exam, pitting edema +2. He has past meth use, quit 5 months ago. Patient gave up drinking 1-2 months ago. Otherwise used to get drunk daily. Vitals stable, Cr 1.3, glucose 109, Mg 1.9, BNP greater than 3280. He received 80 mg IV Lasix in the ED. Echo from 02/08/2020 showed EF 20%, moderate tricuspid regurgitation, moderate pulmonary hypertension. Plan - Cardiology consulted, appreciate recommendations , Anum[place]la Given the history of active and longstanding methamphetamine abuse patient is not a candidate for ICD placement. Patient will need to be on optimize GDMT therapy, close follow-up with [facility] and quit polysubstance abuse - Echo with ef 10-15% Left ventricle size is severely enlarged and systolic function is severely reduced with indeterminate diastolic dysfunction - IV lasix 40mg BID - Start dapagliflozin 10 mg daily - Daily weights - pt able to void independently, no rain indicated - Strict INOs - Low sodium diet - Restrict fluid to 1800mL - Keep potassium >4, mag >2 - Daily CBC, CMP -Start GDMT after acute exacerbation is resolved #NSTEMI, type II #Troponinemia Patient denies any chest pain. EKG negative for any acute ischemic ST changes, rate 104, QTc 524. Troponins on admission 0.049 Plan - Trend troponins every 6 hours - CARDS consulted, appreciate recs #Elevated Alk Phos #Elevated bilirubin Br 1.8 on admission. Direct 0.9 Likely in setting of congestion and alcohol use. Anticipate improvement with diuresis. Has no abdominal pain on exam. Preliminary read negative for any stones. GBUS with some gb wall thickening, Hep panel negative Plan - Daily CMP #Subclinical Hypothyroidism TSH 5.97 TSH 1.51 wnl - recommend outpatient follow up with pcp #Hx Polysubstance Use Disorder #Methamphetamine Use disorder #Alcohol Use disorder Utox negative Ethyl alchohol level <3 pt reports that he quit drinking ~1-2 months ago Plan - cessation counseling - consider CIWA if agitated overnight, but dont anticipate that he will enter withdrawal #Prediabetes A1c 6.0 - debt management counselor on dietary changes - consider metformin on discharge - PCP follow up Health Maintenance: Diet: Cardiac diet, fluid restriction 1.5 L GI prophylaxis: None DVT prophylaxis: Heparin 5000u SC every 12 hours Antibiotics: None CODE STATUS: Full Disposition: Telemetry Plan discussed with my attending Dr. Rut Duncan MD PGY1 Attending Provider Attestation/Addendum Patient was seen and examined. He is significantly improved symptomatically after initial diuresis. Patient admission status changed to observation today. Will continue to monitor symptoms. Decrease frequency of Lasix. I discussed with and supervised the resident physician who took care of this patient. I agree with the assessment and plan as above.
--- NOTE | 2025-03-04 08:33 | PC.NURSE ---
CALLED PROVIDER TO REPORT 2ND TROP OF 0.050, UNABLE TO MAKE CONTACT. DONNA SÁNCHEZ WAS UPDATED ON IT WHEN PT TRANSFERRED UP TO FLOOR.
--- NOTE | 2025-03-04 12:37 | PD.RESCONSUL ---
HPI Data of Consult Requesting Physician: Francisco Gross MD Admitting Provider: Francisco Gross MD Attending Provider: Francisco Gross MD Primary Care Provider: Physician No Primary/Family Consult Narrative History of present illness: Patient is a 50-year-old male with past medical history of hypertension, HFrEF 20-25%, dilated cardiomyopathy, active methamphetamine and alcohol abuse presented to [facility] with chief complaints of shortness of breath and worsening lower extremity edema. Patient was admitted to the hospital in 2019 for the same reason, found to have a HFrEF of 20%, patient at that time was actively using methamphetamine, was extensively consulted regarding side effects of substance abuse. However patient continued to using. His symptoms has been going on for last several days, acutely getting wore even at rest as well, associated with severe limitation of his daily activities. Patient also noticed lower extremity edema that was progressively getting worse. Patient stated that about a month ago he stopped drinking, however continued to active using methamphetamine. 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 He is not very compliant with the doctors, however recently was checked by PCP and was referred to get the echo which he never did, and since his symptoms continue to worsen he decided to present to ED for further evaluation. ED course CMP showed glucose of 119, T. bili 1.8 , AST 35, ALP 177, LDH 315, troponin 0.0 49, BNP above 3280, TSH 5.97 EKG showed sinus tachycardia, LBBB, QTc of 524, without significant ST changes. Chest x-ray showed significant vascular congestion, CTA was negative for PE Venous Doppler ultrasound was negative for any DVTs In ED patient received nitroglycerin patch, morphine, Lasix 80 mg and metoprolol 25 mg x 1 Patient was admitted for acute on chronic CHF exacerbation treatment management. Cardiology was consulted for further recommendations. Past medical history as above Past surgical history none Allergies NKDA Family history mother has a heart condition, following cardiology, denies any history of heart attack in the family, diabetes, or hyperlipidemia Social history patient lives with the family, daughter, and parents. Patient has a chronic alcohol abuse history, was drinking 4-5 x 24 ounces of beer daily. Stated that quitted about months ago. Active methamphetamine smoker more than 10 years. 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 HEENT: Head AT/ NC. Mucous membranes moist. PERRL. NECK: Supple, no lymphadenopathy, no carotid bruits. CARDIOVASCULAR: RRR. Normal S1/S2, No m/r/g. 1 + pitting edema of bilateral LEs. RESPIRATORY: CTAB. No wheezing, rhonchi GASTROINTESTINAL: Abdomen soft, non tender no palpable masses. Bowel sounds present in all 4 quadrants. MUSCULOSKELETAL:? No cyanosis no visible joint swelling. NEUROLOGICAL: CN II-XII grossly intact. No focal deficits. Sensation intact, symmetric. PSYCHIATRIC: Awake and alert, not agitated, normal mood and affect. INTEGUMENTARY: No obvious rashes, no jaundice, normal turgor. Results Labs 03/05/25 05:49 03/05/25 05:49 Labs: Short CBC 03/04/25 Range/Units 02:50 WBC 7.5 (3.8-10.6) Thou/mm3 Hgb 15.8 (13.5-16.0) g/dL Hct 46.8 (41.0-53.0) % Plt Count 238 (140-440) Thou/mm3 BMP 03/04/25 02:50 Sodium 139 Potassium 4.4 Chloride 105 Carbon Dioxide 23.0 BUN 18 Creatinine 1.3 Glucose 109 H Calcium 9.1 Cardiac Enzymes 03/04/25 03/04/25 Range/Units 02:50 06:50 Troponin I 0.049 H* 0.050 H* (0.0-0.045) ng/mL Liver Function 03/04/25 Range/Units 02:50 Total Bilirubin 1.8 H (0.3-1.2) mg/dL Direct Bilirubin 0.9 H (0.0-0.3) mg/dL AST 35 H (0-34) U/L ALT 24 (10-49) U/L Alkaline Phosphatase 177 H (46-116) U/L Albumin 4.3 (3.5-5.0) gm/dL Urine 03/04/25 Range/Units 02:45 Urine Color Yellow (Lt Yel-Yel) Urine Clarity Clear (Clear/Hazy) Urine pH 6.5 (5.0-7.0) Ur Specific [place] 1.031 (1.001-1.035) Urine Protein 3+ A (Neg - Trace) Urine Glucose (UA) Negative (Negative) ABG Interpretation ABG results: 03/04/25 07:15 ABG pH 7.46 H ABG pCO2 32 ABG pO2 95 ABG HCO3 23 ABG O2 Saturation 99 H ABG Base Excess 0 Quality Measures Quality Measures none Medications Home Medications and Allergies Home Medications ?Medication ?Instructions ?Recorded ?Confirmed ?Type lisinopril 20 mg tablet 20 mg PO .QD 03/04/25 03/04/25 History Allergies Allergy/AdvReac Type Severity Reaction Status Date / Time No Known Allergies Allergy Verified 01/09/24 17:16 Visit Medications Acetaminophen (Acetaminophen 325 Mg Tablet) 650 mg PO Q6H PRN PRN Reason: Fever >100.4 or pain (1-3) Stop: 04/03/25 06:11 Dapagliflozin (Dapagliflozin Propanediol 5 Mg Tablet) 10 mg PO QAM [facility] Stop: 04/03/25 08:59 Last Admin: 03/04/25 09:22 Dose: Not Given Furosemide (Furosemide Inj 10 Mg/Ml Vial 2 Ml) 40 mg IVP BIDD MARY Stop: 04/03/25 17:59 Heparin Sodium (Porcine) (Heparin Sod Inj 5000 Unit/Ml Vial) 5,000 unit SC Q12HR [facility] Stop: 03/18/25 08:59 Last Admin: 03/04/25 09:22 Dose: Not Given Ondansetron HCl (Ondansetron Inj 2 Mg/Ml Inj 2 Ml) 4 mg IVP Q6H PRN; Protocol PRN Reason: NAUSEA OR VOMITING Stop: 04/03/25 06:11 Sennosides (Senna Tablet) 1 tab PO QDAY [facility]; Protocol Stop: 04/03/25 08:59 Last Admin: 03/04/25 09:22 Dose: Not Given Discontinued Medications Furosemide (Furosemide Inj 10 Mg/Ml 4ml Vial) 80 mg IVP X1 ONE Stop: 03/04/25 03:54 Last Admin: 03/04/25 04:33 Dose: 80 mg Furosemide (Furosemide Inj 10 Mg/Ml Vial 2 Ml) 40 mg IVP TID MARY Stop: 04/03/25 11:59 Heparin Sodium (Porcine) (Heparin Sod Inj 5000 Unit/Ml Vial) 5,000 unit SC Q8HR MARY Stop: 03/18/25 06:29 Last Admin: 03/04/25 06:39 Dose: 5,000 unit Metoprolol Tartrate (Metoprolol Tartrate 25 Mg Tablet) 25 mg PO X1 ONE Stop: 03/04/25 02:57 Last Admin: 03/04/25 03:16 Dose: 25 mg Morphine Sulfate (Morphine Sulf Inj 4 Mg/Ml Vial) 2 mg IV X1 ONE Stop: 03/04/25 03:54 Last Admin: 03/04/25 04:30 Dose: Not Given Nitroglycerin (Nitroglycerin Oint 2% 1 Inch Packet) 2 inch TOP X1 ONE Stop: 03/04/25 03:54 Last Admin: 03/04/25 04:30 Dose: 2 inch Assessment & Plan Plan 50-year-old male with hypertension, CHF (LVEF 20%), dilated cardiomyopathy, mild valve regurgitation, pulmonary hypertension, asthma, and substance use disorder (methamphetamine and alcohol) presents via EMS with shortness of breath. Patient admitted for acute exacerbation of CHF. #Acute on chronic CHF exacerbation #[id number]% NYHA class IV with sever dispnea and marked limitation Patient with known LVEF 20-25% presents with sever dispnea on exertion, increased fatigue and worsening exercise tolerance consistent with decompensated HF. Echo from 02/08/2020 showed EF 20%, moderate tricuspid regurgitation, moderate pulmonary hypertension. Exam was notable for LE edema, CXR showed vascular congestion and mild HF BNP >3280 He received 80 mg IV Lasix in the ED. ECHO:2019 Dilated cardiomyopathy with severe global hypokinesis Approximate ejection fraction is 20%. Mild aortic, pulmonic and mild to moderate mitral regurgitation. Moderate tricuspid regurgitation Moderate PHTN. Recomendations IV diuresis with lasix 40 BID Strict I and Os fluid/salt restriction monitor electrolytes keep K >4, Mg >2 oxygen respiratory support repeat ECHO Optimization of GDMT as tolerated,after fluid status is stabilised Monitore BP, HR, electrolyted and renal panel. Given the history of active and longstanding methamphetamine abuse, patient also does not have any evidence of any active arrhythmias patient is not a candidate for ICD placement at the present point of time. Patient will need to completely quit his substance abuse and follow-up with primary and have repeat urine toxin performed to confirm the same patient will need to be on optimize GDMT therapy, close follow-up with teletypesetter monitor and quit polysubstance abuse. #NSTEMI, type II demand ischemia Patient denies any chest pain. EKG negative for any acute ischemic ST changes, rate 104, QTc 524. Troponins on admission 0.049, continue trending trop until flattened. #Polysubstance abuse #Methamphetamine abuse #Alcohol use disorder Patient was extensively counseled reg a 50-year-old male patient presented to the emergency department arding side effects of above. Patient care was discussed with attending physician Dr. Yanet Coronel MD PGY-3 I have carefully reviewed this document. Due to imperfections in the voice software, there could be grammatical errors including phonetic/typographic errors. This in no way compromises the medical care the patient is receiving Attending Provider Attestation/Addendum I have personally seen and examined the patient separately on the above date of service and discussed the plan of care with the resident. I reviewed the resident Dr. Yoly Britt consultation progress note and agree with the resident findings and plan in the note above and have also edited the documentation to reflect my findings and plan. A 50-year-old male patient with a past medical history of dilated cardiomyopathy with severe systolic CHF with an EF of 20 to 25% in 2020 secondary to substance abuse including methamphetamine as well as alcohol use, essential hypertension presented to the emergency department for worsening shortness of breath as well as lower extremity edema. 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 Labs in the emergency department did show that patient has mildly elevated troponin 0.049 but flat at 0.04., BNP was greater than 3280, CBC normal range, CMP showed elevated bili at 1.8, AST of 35 alk phos of 177, LDH of 315, creatinine of 1.3 baseline is around 1, TSH 5.97 but free T4 normal at 1.51. A1c was 6.0. Chest x-ray with vascular congestion. CTA was negative for PE. Duplex negative for DVTs. EKG showed sinus tachycardia with left bundle branch block and no acute ST-T changes history of ischemia. Currently consulted for CHF exacerbation. 1. Acute on chronic severe systolic CHF exacerbation with an EF of less than 20% NYHA class III 2. Dilated cardiomyopathy secondary to substance abuse 3. Elevated troponins-NSTEMI type II from supply/demand mismatch 4. Mild EN mostly secondary to cardiorenal syndrome 5. Elevated T. bili mostly secondary to hepatic congestion 6. Essential hypertension 7. Substance abuse history including significant methamphetamine abuse 8.. Alcohol abuse Patient presented with significant complaints of worsening shortness of breath as well as lower extremity edema and has acute on chronic severe systolic CHF exacerbation. Echo from 03/04/2025 showed dilated cardiomyopathy with severely reduced ejection fraction with an EF of around 15%. Severely enlarged LV noted at 7.4 cm. Mildly dilated RV and LA noted. RV function appears normal. Mild to moderately elevated RVSP at 45 to 50 mm. Mild TR. Mild to moderate MR and trace AI. Trace pericardial effusion without any evidence of cardiac tamponade. His severe systolic LV dysfunction along with dilated cardiomyopathy mostly secondary to his history of significant substance abuse with methamphetamine as well as alcohol use. Recommend to continue diuresis with Lasix 40 mg IV twice daily for now-BNP is elevated at 3280. Creatinine is also 1.3 and T. bili is elevated along with AST and ALT. Patient does have cardiorenal syndrome along with hepatic congestion. Any Strict input output Daily weights and 2 g sodium diet. Patient will need goal-directed medical therapy with beta-adam Entresto as well as spironolactone if his blood pressure is permissible and renal function stable. Patient states that he has completely stopped his methamphetamine abuse as well as of alcohol use in the last couple of months. U tox has been negative during this admission. Patient recommended to continue to quit both of methamphetamine as well as alcohol he can be eligible for advanced heart failure therapies including possible ENGINE MECHANIC-D and LVAD at later point of time if his EF does not improve with goal-directed medical therapy. Recommended to follow-up with primary and continue to abstain from substance abuse including methamphetamine or any kind of smoking and alcohol or marijuana use. Will need regular checks of his UTOX to ensure compliance Troponins only minimally elevated at 0.049 x 2. Mostly secondary to type II NSTEMI. Patient does have a history of left bundle branch block noted on his previous EKGs 2. Denies any chest pain or chest pressure at the present point of time. Further ischemic workup can be done as outpatient. German Sue M.D. Interventional Cardiology
[2025-03-04 13:21] LABS: Troponin I 0.048 ng/mL (0.0-0.045)
[2025-03-04 18:44] LABS: Troponin I 0.041 ng/mL (0.0-0.045)
[2025-03-04] MEDS: FUROSEMIDE INJ 10 MG/ML VIAL 2 ML 40 MG IVP (19:01)
[2025-03-05] VITALS (10 sets, daily range): BP systolic 107–123; BP diastolic 77–93; PULSE 52–99; RESP 14–97; TEMP 36.1–36.9; O2SAT 96–99
[2025-03-05] MEDS: FUROSEMIDE INJ 10 MG/ML VIAL 2 ML 40 MG IVP ×2 (05:46→17:22)
[2025-03-05 06:13] LABS: Basophils # (Auto) 0.1 Thou/mm3 (0.0-0.2); Basophils % (Auto) 1 % (0-2.5); Eosinophils # (Auto) 0.1 Thou/mm3 (0.0-0.5); Eosinophils % (Auto) 2 % (0-10); Hematocrit 43.3 % (41.0-53.0); Hemoglobin 14.8 g/dL (13.5-16.0); Immature Granulocytes Auto 0.01 Thou/mm3 (0.00-0.00); Lymphocytes # (Auto) 1.4 Thou/mm3 (1.0-4.8); Lymphocytes % (Auto) 21 % (10-50); Mean Corpuscular HGB Conc 34.2 g/dl (31.0-37.0); Mean Corpuscular Hemoglobin 30.8 pg (25.0-35.0); Mean Corpuscular Volume 90 fL (80-100); Monocytes # (Auto) 0.8 Thou/mm3 (0.0-0.8); Monocytes % (Auto) 12 % (0-12); Neutrophils # (Auto) 4.2 Thou/mm3 (1.8-7.7); Neutrophils % (Auto) 64 % (37-80); Nucleated Red Blood Cell # 0.00 Thou/mm3 (0.00-0.00); Nucleated Red Blood Cell % 0 /100 WBC (0); Platelet Count 213 Thou/mm3 (140-440); RDW Standard Deviation 48.6 fL (35.1-43.9); Red Blood Count 4.80 Miln/mm3 (4.50-5.90); White Blood Count 6.6 Thou/mm3 (3.8-10.6)
[2025-03-05 06:42] LABS: Alanine Aminotransferase 17 U/L (10-49); Albumin, Serum 3.8 gm/dL (3.5-5.0); Albumin/Globulin Ratio 2.0 (1.2-2.2); Alkaline Phosphatase 126 U/L (46-116); Anion Gap 11 (7-16); Aspartate Amino Transferase 26 U/L (0-34); BUN/Creatinine Ratio 13 Ratio (12-20); Bilirubin,Total 2.7 mg/dL (0.3-1.2); Blood Urea Nitrogen 15 mg/dL (9-23); Calcium 8.7 mg/dL (8.3-10.6); Calcium (Corrected) 8.9 mg/dL (8.5-10.1); Carbon Dioxide 30.2 mMol/L (20.0-31.0); Cardiac Risk Estimate 3.4 RATIO (4.0-6.7); Chloride 99 mMol/L (98-107); Cholesterol 120 mg/dL (132-200); Creatinine (Component) 1.2 mg/dL (0.6-1.3); Estimated Creatinine Clearance 74.8 mL/min (>60); Globulin 1.9 gm/dL (2.3-3.5); Glucose 87 mg/dL (74-106); HDL Cholesterol 35 mg/dL (40-60); LDL Cholesterol,Calculated 73 mg/dL (0-130); Magnesium 1.5 mg/dL (1.6-2.6); Osmolality,Calculated 279 (275-295); Phosphorous 4.1 mg/dL (2.4-5.1); Potassium 3.8 mMol/L (3.4-5.1); Sodium 140 mMol/L (136-145); Total Protein 5.7 gm/dL (5.7-8.2); Triglycerides 58 mg/dL (30-150); eGFR > 60 See Note
--- NOTE | 2025-03-05 08:17 | PC.SS ---
This is 50-year-old, male who presented to the ED for shortness of breath. Patient appeared alert and oriented to self, place and situation. Patient was able to verify his address and phone number. Patient resides at home with father, mother, and daughter, Sheela. Patient is independent with all ADLs. 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 Patient assigned his daughter, Sheela as his medical decision maker. Patient's PCP is CN. When medically clear, patient will return home; family to provide transportation. Discharge plan: return home with family. Medical decision maker: Sheela-daughter.
[2025-03-05] MEDS: DAPAGLIFLOZIN PROPANEDIOL 5 MG TABLET 10 MG PO (08:31)
[2025-03-05] MEDS: HEPARIN SOD INJ 5000 UNIT/ML VIAL SC ×2 (08:32→20:09)
--- NOTE | 2025-03-05 08:38 | ESPR_ITS ---
Documentation for date of: 03/05/25 Subjective Subjective Interval history: NAEO. Patient denies pain. Patient would stop responding mid-question. Also observed walking into the wall. Net negative -1L Exam Vital Signs Temp Pulse Resp BP Pulse Ox O2 Del Method 97.4 F 70 14 123/93 H 98 Room Air 03/05/25 08:00 03/05/25 08:00 03/05/25 08:00 03/05/25 08:00 03/05/25 08:00 03/05/25 08:00 Narrative Exam GENERAL: no acute distress, AAO x3, thin HEENT: Head AT/ NC. Mucous membranes moist. PERRL. Minimal JVD at the scm NECK: Supple, no lymphadenopathy, no carotid bruits. CARDIOVASCULAR: RRR. Normal S1/S2, No m/r/g. no pitting edema of LE observed RESPIRATORY: CTAB, symmetric chest rise GASTROINTESTINAL: Abdomen soft, non tender no palpable masses. Bowel sounds present in all 4 quadrants. MUSCULOSKELETAL:? No cyanosis no visible joint swelling. NEUROLOGICAL: CN II-XII grossly intact. No focal deficits. Sensation intact, symmetric. PSYCHIATRIC: Awake and alert, not agitated, normal mood and affect. Stops responding mid-question, observed walking into [place]o. Minimal eye contact. INTEGUMENTARY: No obvious rashes, no jaundice, normal turgor. Objective Labs 03/08/25 04:11 03/08/25 04:11 Labs: Laboratory Results - last 24 hr 03/04/25 03/04/25 03/05/25 12:22 17:56 05:49 WBC 6.6 RBC 4.80 Hgb 14.8 Hct 43.3 MCV 90 MCH 30.8 MCHC 34.2 RDW Std Deviation 48.6 H Plt Count 213 Neut % (Auto) 64 Lymph % (Auto) 21 [place] % (Auto) 12 Eos % (Auto) 2 Baso % (Auto) 1 Neut # (Auto) 4.2 Lymph # (Auto) 1.4 [place] # (Auto) 0.8 Eos # (Auto) 0.1 Baso # (Auto) 0.1 Immature Gran # (Auto) 0.01 H Absolute Nucleated RBC 0.00 Immature Gran % 0 Nucleated RBC % 0 Sodium 140 Potassium 3.8 D Chloride 99 Carbon Dioxide 30.2 Anion Gap 11 BUN 15 Creatinine 1.2 Estim Creat Clear Calc 74.8 eGFR > 60 BUN/Creatinine Ratio 13 Glucose 87 Calculated Osmolality 279 Calcium 8.7 Corrected Calcium 8.9 Phosphorus 4.1 Magnesium 1.5 L Total Bilirubin 2.7 H D AST 26 ALT 17 Alkaline Phosphatase 126 H D Troponin I 0.048 H* 0.041 Total Protein 5.7 Albumin 3.8 D Globulin 1.9 L Albumin/Globulin Ratio 2.0 Triglycerides 58 Cholesterol 120 L LDL Cholesterol, Calc 73 HDL Cholesterol 35 L Cholesterol/HDL Ratio 3.4 L ABG Interpretation ABG results: 03/04/25 07:15 ABG pH 7.46 H ABG pCO2 32 ABG pO2 95 ABG HCO3 23 ABG O2 Saturation 99 H ABG Base Excess 0 Quality Measures Quality Measures VTE prophylaxis Assessment & Plan Assessment Current Active Medications: Generic Name Dose Route Start Last Admin Trade Name Freq PRN Reason Stop Dose Admin Acetaminophen 650 mg 03/04/25 06:12 Acetaminophen 325 Mg Tablet PO 04/03/25 06:11 Q6H PRN Fever >100.4 or pain (1-3) Dapagliflozin 10 mg 03/04/25 09:00 03/05/25 08:31 Dapagliflozin Propanediol 5 Mg Tablet PO 04/03/25 08:59 10 mg QAM MARY Administration Furosemide 40 mg 03/04/25 18:00 03/05/25 05:46 Furosemide Inj 10 Mg/Ml Vial 2 Ml IVP 04/03/25 17:59 40 mg BIDD MARY Administration Heparin Sodium (Porcine) 5,000 unit 03/04/25 09:00 03/05/25 08:32 Heparin Sod Inj 5000 Unit/Ml Vial SC 03/18/25 08:59 5,000 unit Q12HR MARY Administration Ondansetron HCl 4 mg 03/04/25 06:12 Ondansetron Inj 2 Mg/Ml Inj 2 Ml IVP 04/03/25 06:11 Q6H PRN NAUSEA OR VOMITING Protocol Sennosides 1 tab 03/04/25 09:00 03/05/25 08:31 Senna Tablet PO 04/03/25 08:59 1 tab QDAY MARY Administration Protocol Plan 50-year-old male with hypertension, CHF (LVEF 20%), dilated cardiomyopathy, mild valve regurgitation, pulmonary hypertension, asthma, and substance use disorder (methamphetamine and alcohol) presents via EMS with shortness of breath. Patient admitted for acute exacerbation of CHF. #Acute encephalopathy Afebrile, VSS. Electrolytes WNL, kidney and liver fn WNL, euglycemic, TSH high but T4 WNL UDS negative, EtOH negative DDX: CHF, vitamin deficiency, chronic meth use, constipation Plan: - Pending B12, folate levels, RPR - Lactulose 20 g PO BID #Acute CHF exacerbation #HFrEF (EF 10-15% from 03/04/2025 ECHO) #NYHA class IV with severe dyspnea and marked limitation #Diastolic Dysfunction #Meth vs alcohol induced cardiomyopathy Patient presenting with worsening SOB, orthonpnea need to sleep at angle, worsening LE swelling. His symptoms has been going on for last several days, acutely getting wore even at rest as well, associated with severe limitation of his daily activities. No crackles but noted to have JVD on exam, pitting edema +2. He has past meth use, quit 5 months ago. Patient gave up drinking 1-2 months ago. Otherwise used to get drunk daily. Vitals stable, Cr 1.3, glucose 109, Mg 1.9, BNP greater than 3280. He received 80 mg IV Lasix in the ED. Echo from 02/08/2020 showed EF 20%, moderate tricuspid regurgitation, moderate pulmonary hypertension. Plan - Cardiology consulted, appreciate recommendations , Anumandla Given the history of active and longstanding methamphetamine abuse patient is not a candidate for ICD placement. Patient will need to be on optimize GDMT therapy, close follow-up with agricultural chemicals inspector and quit polysubstance abuse - Echo with ef 10-15% Left ventricle size is severely enlarged and systolic function is severely reduced with indeterminate diastolic dysfunction - IV lasix 40mg BID - Dapagliflozin 10 mg daily - Daily weights - pt able to void independently, no rain indicated - Strict INOs - Low sodium diet - Restrict fluid to 1800mL - Keep potassium >4, mag >2 - Daily CBC, CMP - oxygen/respiratory support - Optimization of GDMT as tolerated, after fluid status is stabilized #NSTEMI, type II #Troponinemia - resolved Patient denies any chest pain. EKG showed sinus tachycardia, LBBB, QTc of 524, without significant ST changes. Troponins on admission 0.049, peak 0.05, now downtrending Plan - CARDS consulted, appreciate recs - see above #Evidence of hepatic congestion (liver stasis) #Elevated Alk Phos #Elevated bilirubin - uptrending Br 1.8 on admission. Direct 0.[address] abd/pelvis with elevated t bill i/s/o congestion and alcohol use. Anticipate improvement with diuresis. Has no abdominal pain on exam. GBUS with some gb wall thickening Hep panel negative Plan - Daily CMP - diuresis as above #Subclinical Hypothyroidism TSH 5.97 TSH 1.51 wnl - recommend outpatient follow up with pcp #Hx Polysubstance Use Disorder #Methamphetamine Use disorder #Alcohol Use disorder Utox negative Ethyl alchohol level <3 pt reports that he quit drinking ~1-2 months ago Plan - cessation counseling - consider CIWA if agitated overnight, but don't anticipate that he will enter withdrawal #Prediabetes A1c 6.0 - high school guidance counselor on dietary changes - consider metformin on discharge - PCP follow up Health Maintenance: Diet: Cardiac diet, fluid restriction 1.5 L GI prophylaxis: None DVT prophylaxis: Heparin 5000u SC every 12 hours Antibiotics: None CODE STATUS: Full Disposition: Telemetry Plan discussed with Dr. Philly Vallecillo and Dr. Rut Pierre MD PGY1 Attending Provider Attestation/Addendum Continue diuretic treatment for HCF exacerbation. Monitor daily weight I and O, BUN and creatinine levels. Check CO2 and check orthostatics. I discussed with and supervised the resident physician who took care of this patient. I agree with the assessment and plan as above.
[2025-03-05] MEDS: Magnesium Sulfate 4 GM Ivpb 4 GM/50 ML BAG IV (10:35)
[2025-03-05] MEDS: LACTULOSE SYRUP 20 GM/30 ML UDC PO ×2 (10:46→20:08)
[2025-03-05 11:18] LABS: Syphilis Nonreactive (Nonreactive)
--- NOTE | 2025-03-05 11:39 | ESPR_ITS ---
Documentation for date of: 03/05/25 Subjective Subjective Interval history: mary is a 50-year-old male with past medical history of hypertension, HFrEF 20-25%, dilated cardiomyopathy, active methamphetamine and alcohol abuse presented to [facility] with chief complaints of shortness of breath and worsening lower extremity edema. Patient was admitted to the hospital in 2019 for the same reason, found to have a HFrEF of 20%, patient at that time was actively using methamphetamine, was extensively consulted regarding side effects of substance abuse. However patient continued to using. His symptoms has been going on for last several days, acutely getting wore even at rest as well, associated with severe limitation of his daily activities. Patient also noticed lower extremity edema that was progressively getting worse. Patient stated that about a month ago he stopped drinking, however continued to active using methamphetamine. 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 He is not very compliant with the doctors, however recently was checked by PCP and was referred to get the echo which he never did, and since his symptoms continue to worsen he decided to present to ED for further evaluation. ED course CMP showed glucose of 119, T. bili 1.8 , AST 35, ALP 177, LDH 315, troponin 0.0 49, BNP above 3280, TSH 5.97 EKG showed sinus tachycardia, LBBB, QTc of 524, without significant ST changes. Chest x-ray showed significant vascular congestion, CTA was negative for PE Venous Doppler ultrasound was negative for any DVTs In ED patient received nitroglycerin patch, morphine, Lasix 80 mg and metoprolol 25 mg x 1 Patient was admitted for acute on chronic CHF exacerbation treatment management. Cardiology was consulted for further recommendations. 03/05/25:Patient was seen and examined at bedside. No acute overnight events. Vitals are stable, patient saturating 96% on room air. Continue to be on Lasix 40 twice daily. Net 460, patient weight down from 72 to 66 kg. Continue active diuresis, if vitals are stable, patient can be initiated on GDMT, will can introduce metoprolol slowly, patient will need outpatient close follow-up with cardiology. Exam Vital Signs Temp Pulse Resp BP Pulse Ox O2 Del Method 97.4 F 70 14 123/93 H 98 Room Air 03/05/25 08:00 03/05/25 08:00 03/05/25 08:00 03/05/25 08:00 03/05/25 08:00 03/05/25 08:00 Narrative Exam GENERAL: no acute distress, AAO x3, well nourished. HEENT: Head AT/ NC. Mucous membranes moist. PERRL. NECK: Supple, no lymphadenopathy, no carotid bruits. CARDIOVASCULAR: RRR. Normal S1/S2, No m/r/g. 1 + pitting edema of bilateral LEs. RESPIRATORY: CTAB. No wheezing, rhonchi GASTROINTESTINAL: Abdomen soft, non tender no palpable masses. Bowel sounds present in all 4 quadrants. MUSCULOSKELETAL:? No cyanosis no visible joint swelling. NEUROLOGICAL: CN II-XII grossly intact. No focal deficits. Sensation intact, symmetric. PSYCHIATRIC: Awake and alert, not agitated, normal mood and affect. INTEGUMENTARY: No obvious rashes, no jaundice, normal turgor. Objective Labs 03/06/25 05:07 03/06/25 05:07 Labs: Laboratory Results - last 24 hr 03/04/25 03/04/25 03/05/25 12:22 17:56 05:49 WBC 6.6 RBC 4.80 Hgb 14.8 Hct 43.3 MCV 90 MCH 30.8 MCHC 34.2 RDW Std Deviation 48.6 H Plt Count 213 Neut % (Auto) 64 Lymph % (Auto) 21 [place] % (Auto) 12 Eos % (Auto) 2 Baso % (Auto) 1 Neut # (Auto) 4.2 Lymph # (Auto) 1.4 [place] # (Auto) 0.8 Eos # (Auto) 0.1 Baso # (Auto) 0.1 Immature Gran # (Auto) 0.01 H Absolute Nucleated RBC 0.00 Immature Gran % 0 Nucleated RBC % 0 Sodium 140 Potassium 3.8 D Chloride 99 Carbon Dioxide 30.2 Anion Gap 11 BUN 15 Creatinine 1.2 Estim Creat Clear Calc 74.8 eGFR > 60 BUN/Creatinine Ratio 13 Glucose 87 Calculated Osmolality 279 Calcium 8.7 Corrected Calcium 8.9 Phosphorus 4.1 Magnesium 1.5 L Total Bilirubin 2.7 H D AST 26 ALT 17 Alkaline Phosphatase 126 H D Troponin I 0.048 H* 0.041 Total Protein 5.7 Albumin 3.8 D Globulin 1.9 L Albumin/Globulin Ratio 2.0 Triglycerides 58 Cholesterol 120 L LDL Cholesterol, Calc 73 HDL Cholesterol 35 L Cholesterol/HDL Ratio 3.4 L Syphilis Serology Nonreactive ABG Interpretation ABG results: 03/04/25 07:15 ABG pH 7.46 H ABG pCO2 32 ABG pO2 95 ABG HCO3 23 ABG O2 Saturation 99 H ABG Base Excess 0 Quality Measures Quality Measures VTE prophylaxis Assessment & Plan Assessment Current Active Medications: Generic Name Dose Route Start Last Admin Trade Name Freq PRN Reason Stop Dose Admin Acetaminophen 650 mg 03/04/25 06:12 Acetaminophen 325 Mg Tablet PO 04/03/25 06:11 Q6H PRN Fever >100.4 or pain (1-3) Dapagliflozin 10 mg 03/04/25 09:00 03/05/25 08:31 Dapagliflozin Propanediol 5 Mg Tablet PO 04/03/25 08:59 10 mg QAM MARY Administration Furosemide 40 mg 03/04/25 18:00 03/05/25 05:46 Furosemide Inj 10 Mg/Ml Vial 2 Ml IVP 04/03/25 17:59 40 mg BIDD MARY Administration Heparin Sodium (Porcine) 5,000 unit 03/04/25 09:00 03/05/25 08:32 Heparin Sod Inj 5000 Unit/Ml Vial SC 03/18/25 08:59 5,000 unit Q12HR MARY Administration Magnesium Sulfate 4 gm in 50 mls @ 12.5 mls/hr 03/05/25 08:41 03/05/25 10:35 Magnesium Sulfate Ivpb IV 03/05/25 12:40 12.5 mls/hr X1 ONE Administration Lactulose 20 gm 03/05/25 10:45 03/05/25 10:46 Lactulose Syrup 20 Gm/30 Ml Udc PO 04/04/25 10:44 20 gm BID MARY Administration Protocol Ondansetron HCl 4 mg 03/04/25 06:12 Ondansetron Inj 2 Mg/Ml Inj 2 Ml IVP 04/03/25 06:11 Q6H PRN NAUSEA OR VOMITING Protocol Sennosides 1 tab 03/04/25 09:00 03/05/25 08:31 Senna Tablet PO 04/03/25 08:59 1 tab QDAY MARY Administration Protocol Plan 50-year-old male with hypertension, CHF (LVEF 20%), dilated cardiomyopathy, mild valve regurgitation, pulmonary hypertension, asthma, and substance use disorder (methamphetamine and alcohol) presents via EMS with shortness of breath. Patient admitted for acute exacerbation of CHF. #Acute on chronic CHF exacerbation #[id number]% NYHA class IV with sever dispnea and marked limitation Patient with known LVEF 20-25% presents with sever dispnea on exertion, increased fatigue and worsening exercise tolerance consistent with decompensated HF. Echo from 02/08/2020 showed EF 20%, moderate tricuspid regurgitation, moderate pulmonary hypertension. Exam was notable for LE edema, CXR showed vascular congestion and mild HF BNP >3280 He received 80 mg IV Lasix in the ED. ECHO:2019 Dilated cardiomyopathy with severe global hypokinesis Approximate ejection fraction is 20%. Mild aortic, pulmonic and mild to moderate mitral regurgitation. Moderate tricuspid regurgitation Moderate PHTN. ECHO:03/04/25: Summary 1. The echocardiogram is normal by two-dimensional, color flow imaging, and Doppler interrogation. 2. Left ventricle size is severely enlarged and systolic function is severely reduced. Estimated ejection fraction is 10-15%. There is indeterminate diastolic function. 3. Right ventricle chamber size is mildly enlarged and systolic function is normal. Estimated RVSP is 45- 50 mm hg. 4. There is mild to moderate mitral valve regurgitation. mild TR. Trace AI. 5. Dilated IVC with estimated RA pressure 15 mmHg. Trace to small pericardial effusion with no tamponade. Recomendations IV diuresis with lasix 40 BID Strict I and Os fluid/salt restriction monitor electrolytes keep K >4, Mg >2 oxygen respiratory support Optimization of GDMT as tolerated,after fluid status is stabilised, If vitals are stable, patient can be started on low-dose of metoprolol. Monitore BP, HR, electrolyted and renal panel. Given the history of active and longstanding methamphetamine abuse, patient also does not have any evidence of any active arrhythmias patient is not a candidate for ICD placement at the present point of time. Patient will need to completely quit his substance abuse and follow-up with primary and have repeat urine toxin perforormed. Patient will need to be on optimize GDMT therapy, close follow-up with rag grader and quit polysubstance abuse. #NSTEMI, type II demand ischemia Patient denies any chest pain. EKG negative for any acute ischemic ST changes, rate 104, QTc 524. Troponins on admission 0.049, continue trending trop until flattened. #Polysubstance abuse #Methamphetamine abuse #Alcohol use disorder Patient was extensively counseled Patient care was discussed with attending physician Dr. Yanet Coronel MD PGY-3 I have carefully reviewed this document. Due to imperfections in the voice software, there could be grammatical errors including phonetic/typographic errors. This in no way compromises the medical care the patient is receiving Attending Provider Attestation/Addendum I have personally seen and examined the patient separately on the above date of service and discussed the plan of care with the resident. I reviewed the resident Dr. Yoly Britt consultation progress note and agree with the resident findings and plan in the note above and have also edited the documentation to reflect my findings and plan. German Sue M.D. Interventional Cardiology
--- NOTE | 2025-03-05 12:21 | PC.PT ---
PT eval only. Patient was xI with bed mobility, transfers, and ambulation with no AD. Patient is safe to ambulate to the bathroom and in the halls with no staff and no AD. RN made aware.
[2025-03-06] VITALS (11 sets, daily range): BP systolic 91–123; BP diastolic 68–85; PULSE 63–85; RESP 16–98; TEMP 36.3–37.2; O2SAT 93–100
[2025-03-06] MEDS: FUROSEMIDE INJ 10 MG/ML VIAL 2 ML 40 MG IVP (05:24)
[2025-03-06 05:44] LABS: Basophils # (Auto) 0.1 Thou/mm3 (0.0-0.2); Basophils % (Auto) 1 % (0-2.5); Eosinophils # (Auto) 0.2 Thou/mm3 (0.0-0.5); Eosinophils % (Auto) 2 % (0-10); Hematocrit 45.5 % (41.0-53.0); Hemoglobin 15.7 g/dL (13.5-16.0); Immature Granulocytes Auto 0.02 Thou/mm3 (0.00-0.00); Lymphocytes # (Auto) 1.4 Thou/mm3 (1.0-4.8); Lymphocytes % (Auto) 20 % (10-50); Mean Corpuscular HGB Conc 34.5 g/dl (31.0-37.0); Mean Corpuscular Hemoglobin 30.4 pg (25.0-35.0); Mean Corpuscular Volume 88 fL (80-100); Monocytes # (Auto) 1.1 Thou/mm3 (0.0-0.8); Monocytes % (Auto) 14 % (0-12); Neutrophils # (Auto) 4.6 Thou/mm3 (1.8-7.7); Neutrophils % (Auto) 63 % (37-80); Nucleated Red Blood Cell # 0.00 Thou/mm3 (0.00-0.00); Nucleated Red Blood Cell % 0 /100 WBC (0); Platelet Count 224 Thou/mm3 (140-440); RDW Standard Deviation 46.7 fL (35.1-43.9); Red Blood Count 5.17 Miln/mm3 (4.50-5.90); White Blood Count 7.3 Thou/mm3 (3.8-10.6)
[2025-03-06 06:06] LABS: Alanine Aminotransferase 19 U/L (10-49); Albumin, Serum 4.0 gm/dL (3.5-5.0); Albumin/Globulin Ratio 2.0 (1.2-2.2); Alkaline Phosphatase 138 U/L (46-116); Anion Gap 10 (7-16); Aspartate Amino Transferase 24 U/L (0-34); BUN/Creatinine Ratio 12 Ratio (12-20); Bilirubin,Total 2.4 mg/dL (0.3-1.2); Blood Urea Nitrogen 13 mg/dL (9-23); Calcium 8.9 mg/dL (8.3-10.6); Calcium (Corrected) 8.9 mg/dL (8.5-10.1); Carbon Dioxide 29.1 mMol/L (20.0-31.0); Chloride 99 mMol/L (98-107); Creatinine (Component) 1.1 mg/dL (0.6-1.3); Estimated Creatinine Clearance 75.0 mL/min (>60); Globulin 2.0 gm/dL (2.3-3.5); Glucose 87 mg/dL (74-106); Magnesium 2.1 mg/dL (1.6-2.6); Osmolality,Calculated 274 (275-295); Phosphorous 3.8 mg/dL (2.4-5.1); Potassium 3.4 mMol/L (3.4-5.1); Sodium 138 mMol/L (136-145); Total Protein 6.0 gm/dL (5.7-8.2); eGFR > 60 See Note
--- NOTE | 2025-03-06 07:37 | ESPR_ITS ---
<Statement entered by Fausto Vallecillo MD - 03/06/25 20:04> Pt is seen at bedside, saturating on room air, no crackles appreciated on auscultation, no pitting edema in LE. Per cardiology will continue lasix IV, will slowly start GDMT with entresto, metoprolol xl and if BP permits will add spironolactone. Pt will need ICD, which will require him to be compliant with routine visits to optimize GDMT for 6 months and if pt remains drug free with monthly random urine tox. Patient was seen and examined by me personally. I have directly supervised and reviewed documentation by the team resident and agree with its findings. ------- Plan of care was discussed with the attending, Dr. Sundar Vallecillo, PGY-2 Documentation for date of: 03/06/25 Subjective Subjective Interval history: patient seen and examined at bedside. satting well on RA diuresis transitioned from IV to PO, recieved am dose IV, first po dose will be tomorrow GDMT initiated: carvedilol 3.125 bid, lisinopril 5mg qd. plan to initiated low dose alactone tomorrow if pt bp can tolerate Exam Vital Signs Temp Pulse Resp BP Pulse Ox O2 Del Method 98.9 F 65 16 123/85 H 93 L Room Air 03/06/25 04:00 03/06/25 05:24 03/06/25 04:00 03/06/25 05:24 03/06/25 04:00 03/06/25 04:00 Narrative Exam GENERAL: no acute distress, AAO x3, thin HEENT: Head AT/ NC. Mucous membranes moist. PERRL. Minimal JVD at the scm NECK: Supple, no lymphadenopathy, no carotid bruits. CARDIOVASCULAR: RRR. Normal S1/S2, No m/r/g. no pitting edema of LE observed RESPIRATORY: CTAB, symmetric chest rise GASTROINTESTINAL: Abdomen soft, non tender no palpable masses. Bowel sounds present in all 4 quadrants. MUSCULOSKELETAL:? No cyanosis no visible joint swelling. NEUROLOGICAL: CN II-XII grossly intact. No focal deficits. Sensation intact, symmetric. PSYCHIATRIC: Awake and alert, not agitated, normal mood and affec INTEGUMENTARY: No obvious rashes, no jaundice, normal turgor. Objective Labs 03/07/25 04:46 03/07/25 04:46 Labs: Laboratory Results - last 24 hr 03/05/25 03/06/25 05:49 05:07 WBC 7.3 RBC 5.17 Hgb 15.7 Hct 45.5 MCV 88 MCH 30.4 MCHC 34.5 RDW Std Deviation 46.7 H Plt Count 224 Neut % (Auto) 63 Lymph % (Auto) 20 [place] % (Auto) 14 H Eos % (Auto) 2 Baso % (Auto) 1 Neut # (Auto) 4.6 Lymph # (Auto) 1.4 [place] # (Auto) 1.1 H Eos # (Auto) 0.2 Baso # (Auto) 0.1 Immature Gran # (Auto) 0.02 H Absolute Nucleated RBC 0.00 Immature Gran % 0 Nucleated RBC % 0 Sodium 138 Potassium 3.4 Chloride 99 Carbon Dioxide 29.1 Anion Gap 10 BUN 13 Creatinine 1.1 Estim Creat Clear Calc 75.0 eGFR > 60 BUN/Creatinine Ratio 12 Glucose 87 Calculated Osmolality 274 L Calcium 8.9 Corrected Calcium 8.9 Phosphorus 3.8 Magnesium 2.1 Total Bilirubin 2.4 H AST 24 ALT 19 Alkaline Phosphatase 138 H Total Protein 6.0 Albumin 4.0 Globulin 2.0 L Albumin/Globulin Ratio 2.0 Syphilis Serology Nonreactive ABG Interpretation ABG results: 03/04/25 07:15 ABG pH 7.46 H ABG pCO2 32 ABG pO2 95 ABG HCO3 23 ABG O2 Saturation 99 H ABG Base Excess 0 Quality Measures Quality Measures VTE prophylaxis Assessment & Plan Assessment Current Active Medications: Generic Name Dose Route Start Last Admin Trade Name Alisa PRN Reason Stop Dose Admin Acetaminophen 650 mg 03/04/25 06:12 Acetaminophen 325 Mg Tablet PO 04/03/25 06:11 Q6H PRN Fever >100.4 or pain (1-3) Dapagliflozin 10 mg 03/04/25 09:00 03/05/25 08:31 Dapagliflozin Propanediol 5 Mg Tablet PO 04/03/25 08:59 10 mg QAM MARY Administration Furosemide 40 mg 03/04/25 18:00 03/06/25 05:24 Furosemide Inj 10 Mg/Ml Vial 2 Ml IVP 04/03/25 17:59 40 mg BIDD MARY Administration Heparin Sodium (Porcine) 5,000 unit 03/04/25 09:00 03/05/25 20:09 Heparin Sod Inj 5000 Unit/Ml Vial SC 03/18/25 08:59 5,000 unit Q12HR MARY Administration Lactulose 20 gm 03/05/25 10:45 03/05/25 20:08 Lactulose Syrup 20 Gm/30 Ml Udc PO 04/04/25 10:44 20 gm BID MARY Administration Protocol Ondansetron HCl 4 mg 03/04/25 06:12 Ondansetron Inj 2 Mg/Ml Inj 2 Ml IVP 04/03/25 06:11 Q6H PRN NAUSEA OR VOMITING Protocol Sennosides 1 tab 03/04/25 09:00 03/05/25 08:31 Senna Tablet PO 04/03/25 08:59 1 tab QDAY MARY Administration Protocol Plan 50-year-old male with hypertension, CHF (LVEF 20%), dilated cardiomyopathy, mild valve regurgitation, pulmonary hypertension, asthma, and substance use disorder (methamphetamine and alcohol) presents via EMS with shortness of breath. Patient admitted for acute exacerbation of CHF., undergoing initiation of GDMT #Acute CHF exacerbation #HFrEF (EF 10-15% from 03/04/2025 ECHO) #NYHA class IV with severe dyspnea and marked limitation #Diastolic Dysfunction #Meth vs alcohol induced cardiomyopathy Patient presenting with worsening SOB, orthonpnea need to sleep at angle, worsening LE swelling. His symptoms has been going on for last several days, acutely getting wore even at rest as well, associated with severe limitation of his daily activities. No crackles but noted to have JVD on exam, pitting edema +2. He has past meth use, quit 5 months ago. Patient gave up drinking 1-2 months ago. Otherwise used to get drunk daily. Vitals stable, Cr 1.3, glucose 109, Mg 1.9, BNP greater than 3280. He received 80 mg IV Lasix in the ED. Echo from 02/08/2020 showed EF 20%, moderate tricuspid regurgitation, moderate pulmonary hypertension. Plan - Cardiology consulted, appreciate recommendations , Anumandla Given the history of active and longstanding methamphetamine abuse patient is not a candidate for ICD placement. Patient will need to be on optimize GDMT therapy, close follow-up with scarfer and quit polysubstance abuse utox negative on admission, no meth, no alcohol. (last utox with methamphetamine positive, was in 2019) - Echo with ef 10-15% Left ventricle size is severely enlarged and systolic function is severely reduced with indeterminate diastolic dysfunction - Daily weights - pt able to void independently, no rain indicated - Strict INOs - Low sodium diet - Restrict fluid to 1800mL - Keep potassium >4, mag >2 - Daily CBC, CMP - oxygen/respiratory support - PO lasix 20 BID (transitioned from IV to PO 03/06) - Optimization of GDMT: carvedilol 3.125 BID, lisinopril 5mg qd, Dapagliflozin 10 mg qd, consider aldactone tomorrow if bp permits (hold parameters in place for sbp<100) #NSTEMI, type II #Troponinemia - resolved Patient denies any chest pain. EKG showed sinus tachycardia, LBBB, QTc of 524, without significant ST changes. Troponins on admission 0.049, peak 0.05, now downtrending Plan - CARDS consulted, appreciate recs - see above #Evidence of hepatic congestion (liver stasis) #Elevated Alk Phos #Elevated bilirubin - uptrending Br 1.8 on admission. Direct 0.[address] abd/pelvis with elevated t bill i/s/o congestion and alcohol use. Anticipate improvement with diuresis. Has no abdominal pain on exam. GBUS with some gb wall thickening Hep panel negative Plan - Daily CMP - diuresis as above #Subclinical Hypothyroidism TSH 5.97 TSH 1.51 wnl - recommend outpatient follow up with pcp #Hx Polysubstance Use Disorder #Methamphetamine Use disorder #Alcohol Use disorder Utox negative on this admission Ethyl alchohol level <3 Last utox that was positive for meth was in 2019. negative since then. pt reports that he quit drinking ~1-2 months ago Plan - cessation counseling - consider CIWA if agitated overnight, but don't anticipate that he will enter withdrawal #Prediabetes A1c 6.0 - recreational counselor on dietary changes - consider metformin on discharge - PCP follow up Health Maintenance: Diet: Cardiac diet, fluid restriction 1.8 L, on gdmt initiation with plan to uptitrate. GI prophylaxis: None DVT prophylaxis: Heparin 5000u SC every 12 hours Antibiotics: None CODE STATUS: Full Disposition: Telemetry Plan discussed with my attending Dr. Kwok and my senior Dr. Avel Duncan MD PGY1 Attending Provider Attestation/Addendum I have examined the patient, reviewed labs and imaging findings, discussed the case with the resident(s), and reviewed entered orders. I agree with the plan of care as outlined in this note, with these additional summaries/recommendations: Patient on room air however labs still show signs of likely hepatic congestion and intravascular overload. Will continue with diuretics and will initiate patient on GDMT with Entresto and Toprol-XL. Monitor electrolytes closely and anticipate discharge in next 1 to 2 days. Amauri Kwok MD
[2025-03-06] MEDS: DAPAGLIFLOZIN PROPANEDIOL 5 MG TABLET 10 MG PO (08:23)
[2025-03-06] MEDS: HEPARIN SOD INJ 5000 UNIT/ML VIAL SC ×2 (08:27→20:25)
--- NOTE | 2025-03-06 12:06 | PD.RESPRO ---
Documentation for date of: 03/06/25 Subjective Subjective Interval history: patient was seen at bedside. He is improving well and denies any chest pain, palpitations, shortness of breath, leg swelling. On examination there is no pedal edema and lungs appears to be clear. But total bilirubin is still elevated 2.4 and there might be slight venous congestion. Potassium is 3.4 can be benefited by giving him the 60 milliequivalents of potassium. Counseled the patient on importance of medication compliance and importance of quitting methamphetamine usage. Exam Vital Signs Temp Pulse Resp BP Pulse Ox O2 Del Method 97.8 F 73 18 91/69 97 Room Air 03/06/25 08:00 03/06/25 12:00 03/06/25 08:00 03/06/25 11:53 03/06/25 08:00 03/06/25 08:00 Objective Labs 03/07/25 04:46 03/07/25 04:46 Labs: Laboratory Results - last 24 hr 03/06/25 05:07 WBC 7.3 RBC 5.17 Hgb 15.7 Hct 45.5 MCV 88 MCH 30.4 MCHC 34.5 RDW Std Deviation 46.7 H Plt Count 224 Neut % (Auto) 63 Lymph % (Auto) 20 [place] % (Auto) 14 H Eos % (Auto) 2 Baso % (Auto) 1 Neut # (Auto) 4.6 Lymph # (Auto) 1.4 [place] # (Auto) 1.1 H Eos # (Auto) 0.2 Baso # (Auto) 0.1 Immature Gran # (Auto) 0.02 H Absolute Nucleated RBC 0.00 Immature Gran % 0 Nucleated RBC % 0 Sodium 138 Potassium 3.4 Chloride 99 Carbon Dioxide 29.1 Anion Gap 10 BUN 13 Creatinine 1.1 Estim Creat Clear Calc 75.0 eGFR > 60 BUN/Creatinine Ratio 12 Glucose 87 Calculated Osmolality 274 L Calcium 8.9 Corrected Calcium 8.9 Phosphorus 3.8 Magnesium 2.1 Total Bilirubin 2.4 H AST 24 ALT 19 Alkaline Phosphatase 138 H Total Protein 6.0 Albumin 4.0 Globulin 2.0 L Albumin/Globulin Ratio 2.0 ABG Interpretation ABG results: 03/04/25 07:15 ABG pH 7.46 H ABG pCO2 32 ABG pO2 95 ABG HCO3 23 ABG O2 Saturation 99 H ABG Base Excess 0 Quality Measures Quality Measures VTE prophylaxis Assessment & Plan Assessment Current Active Medications: Generic Name Dose Route Start Last Admin Trade Name Freq PRN Reason Stop Dose Admin Acetaminophen 650 mg 03/04/25 06:12 Acetaminophen 325 Mg Tablet PO 04/03/25 06:11 Q6H PRN Fever >100.4 or pain (1-3) Carvedilol 3.125 mg 03/06/25 08:10 03/06/25 08:23 Carvedilol 3.125 Mg Tablet PO 04/05/25 08:09 3.125 mg BIDWM MARY Administration Dapagliflozin 10 mg 03/04/25 09:00 03/06/25 08:23 Dapagliflozin Propanediol 5 Mg Tablet PO 04/03/25 08:59 10 mg QAM MARY Administration Furosemide 20 mg 03/07/25 05:00 Furosemide 40 Mg Tablet PO 04/06/25 04:59 BIDD MARY Heparin Sodium (Porcine) 5,000 unit 03/04/25 09:00 03/06/25 08:27 Heparin Sod Inj 5000 Unit/Ml Vial SC 03/18/25 08:59 5,000 unit Q12HR MARY Administration Lisinopril 5 mg 03/06/25 11:00 03/06/25 11:53 Lisinopril 2.5 Mg Tablet PO 04/05/25 10:59 Not Given QDAY [facility] Ondansetron HCl 4 mg 03/04/25 06:12 Ondansetron Inj 2 Mg/Ml Inj 2 Ml IVP 04/03/25 06:11 Q6H PRN NAUSEA OR VOMITING Protocol Sennosides 1 tab 03/04/25 09:00 03/06/25 08:23 Senna Tablet PO 04/03/25 08:59 1 tab QDAY MARY Administration Protocol Plan 50-year-old male with hypertension, CHF (LVEF 20%), dilated cardiomyopathy, mild valve regurgitation, pulmonary hypertension, asthma, and substance use disorder (methamphetamine and alcohol) presents via EMS with shortness of breath. Patient admitted for acute exacerbation of CHF. #Acute on chronic CHF exacerbation #[id number]% NYHA class IV with sever dispnea and marked limitation Patient with known LVEF 20-25% presents with sever dispnea on exertion, increased fatigue and worsening exercise tolerance consistent with decompensated HF. Echo from 02/08/2020 showed EF 20%, moderate tricuspid regurgitation, moderate pulmonary hypertension. Exam was notable for LE edema, CXR showed vascular congestion and mild HF BNP >3280 He received 80 mg IV Lasix in the ED. ECHO:2020 Dilated cardiomyopathy with severe global hypokinesis Approximate ejection fraction is 20%. Mild aortic, pulmonic and mild to moderate mitral regurgitation. Moderate tricuspid regurgitation Moderate PHTN. ECHO:03/04/25: Summary 1. The echocardiogram is normal by two-dimensional, color flow imaging, and Doppler interrogation. 2. Left ventricle size is severely enlarged and systolic function is severely reduced. Estimated ejection fraction is 10-15%. There is indeterminate diastolic function. 3. Right ventricle chamber size is mildly enlarged and systolic function is normal. Estimated RVSP is 45- 50 mm hg. 4. There is mild to moderate mitral valve regurgitation. mild TR. Trace AI. 5. Dilated IVC with estimated RA pressure 15 mmHg. Trace to small pericardial effusion with no tamponade. Recomendations BUN and creatinine are improving today Total Bilrubin is 2.4 although reduced from yesterday but still elevated probably due to slight hepatic congestion from HF .Can be benefitted from diuresis.. -IV diuresis with lasix 40 BID Strict I and Os fluid/salt restriction monitor electrolytes keep K >4, Mg >2. Today the potassium is 3.4 can be benefitted by giving another 60meq of oral potassium oxygen respiratory support Optimization of GDMT as tolerated,after fluid status is stabilised, If vitals are stable, patient can be started on low-dose of metoprolol X for now and rest of the goal-directed medical therapy can be status started as outpatient as the blood pressure is on the lower side.. Monitore BP, HR, electrolyted and renal panel. Given the history of active and longstanding methamphetamine abuse, patient also does not have any evidence of any active arrhythmias patient is not a candidate for ICD placement at the present point of time. Patient will need to completely quit his substance abuse and follow-up with primary and have repeat urine toxin perforormed. 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 #NSTEMI, type II demand ischemia Patient denies any chest pain. EKG negative for any acute ischemic ST changes, rate 104, QTc 524. Troponins on admission 0.049, continue trending trop until flattened. #Polysubstance abuse #Methamphetamine abuse #Alcohol use disorder Patient was extensively counseled Patient care was discussed with attending physician Dr. Linette Alfaro MD PGY1 Attending Provider Attestation/Addendum I have personally seen and examined the patient separately on the above date of service and discussed the plan of care with the resident. I reviewed the resident Dr. Jose Alfaro consultation progress note and agree with the resident findings and plan in the note above and have also edited the documentation to reflect my findings and plan. German Sue M.D. Interventional Cardiology
[2025-03-06 19:21] LABS: Folate 15.15 ng/mL (>5.38); Vitamin B12 911 pg/mL (211-911)
[2025-03-07] VITALS (14 sets, daily range): BP systolic 104–124; BP diastolic 67–96; PULSE 54–91; RESP 15–99; TEMP 36.1–36.7; O2SAT 95–99; BMI 20.1
[2025-03-07 06:11] LABS: Basophils # (Auto) 0.1 Thou/mm3 (0.0-0.2); Basophils % (Auto) 1 % (0-2.5); Eosinophils # (Auto) 0.3 Thou/mm3 (0.0-0.5); Eosinophils % (Auto) 4 % (0-10); Hematocrit 45.9 % (41.0-53.0); Hemoglobin 15.6 g/dL (13.5-16.0); Immature Granulocytes Auto 0.01 Thou/mm3 (0.00-0.00); Lymphocytes # (Auto) 1.7 Thou/mm3 (1.0-4.8); Lymphocytes % (Auto) 24 % (10-50); Mean Corpuscular HGB Conc 34.0 g/dl (31.0-37.0); Mean Corpuscular Hemoglobin 30.2 pg (25.0-35.0); Mean Corpuscular Volume 89 fL (80-100); Monocytes # (Auto) 1.0 Thou/mm3 (0.0-0.8); Monocytes % (Auto) 14 % (0-12); Neutrophils # (Auto) 4.1 Thou/mm3 (1.8-7.7); Neutrophils % (Auto) 58 % (37-80); Nucleated Red Blood Cell # 0.00 Thou/mm3 (0.00-0.00); Nucleated Red Blood Cell % 0 /100 WBC (0); Platelet Count 252 Thou/mm3 (140-440); RDW Standard Deviation 47.0 fL (35.1-43.9); Red Blood Count 5.17 Miln/mm3 (4.50-5.90); White Blood Count 7.1 Thou/mm3 (3.8-10.6)
[2025-03-07 06:24] LABS: Alanine Aminotransferase 22 U/L (10-49); Albumin, Serum 3.9 gm/dL (3.5-5.0); Albumin/Globulin Ratio 1.6 (1.2-2.2); Alkaline Phosphatase 143 U/L (46-116); Anion Gap 10 (7-16); Aspartate Amino Transferase 28 U/L (0-34); BUN/Creatinine Ratio 13 Ratio (12-20); Bilirubin,Total 2.0 mg/dL (0.3-1.2); Blood Urea Nitrogen 13 mg/dL (9-23); Calcium 9.3 mg/dL (8.3-10.6); Calcium (Corrected) 9.4 mg/dL (8.5-10.1); Carbon Dioxide 27.3 mMol/L (20.0-31.0); Chloride 100 mMol/L (98-107); Creatinine (Component) 1.0 mg/dL (0.6-1.3); Estimated Creatinine Clearance 78.8 mL/min (>60); Globulin 2.4 gm/dL (2.3-3.5); Glucose 84 mg/dL (74-106); Magnesium 1.8 mg/dL (1.6-2.6); Osmolality,Calculated 272 (275-295); Phosphorous 3.7 mg/dL (2.4-5.1); Potassium 3.9 mMol/L (3.4-5.1); Sodium 137 mMol/L (136-145); Total Protein 6.3 gm/dL (5.7-8.2); eGFR > 60 See Note
--- NOTE | 2025-03-07 08:12 | ESPR_ITS ---
<Statement entered by Fausto Vallecillo MD - 03/07/25 21:05> Patient is seen at bedside we will continue to optimize GDMT and closely monitor blood pressure. Will add half a tablet of Entresto and continue to monitor her blood pressure. Patient was seen and examined by me personally. I have directly supervised and reviewed documentation by the team resident and agree with its findings. ------- Plan of care was discussed with the attending, Dr. Sundar Vallecillo, PGY-2 Documentation for date of: 03/07/25 Subjective Subjective Interval history: NAEO. Patient reports feeling well today. Denies chest pain, shortness of breath, paresthesias, weakness. Patient had an unsustained episode of Vtach witnessed on tele box, reported by nurse. Exam Vital Signs Temp Pulse Resp BP Pulse Ox O2 Del Method 97.0 F 69 20 116/80 95 Room Air 03/07/25 04:00 03/07/25 07:16 03/07/25 07:16 03/07/25 06:05 03/07/25 07:16 03/07/25 04:00 Narrative Exam GENERAL: no acute distress, AAO x3, thin HEENT: Head AT/ NC. Mucous membranes moist. PERRL. NECK: Supple, no lymphadenopathy, no carotid bruits. CARDIOVASCULAR: RRR. Normal S1/S2, No m/r/g. no pitting edema of LE observed RESPIRATORY: CTAB, symmetric chest rise GASTROINTESTINAL: Abdomen soft, non tender no palpable masses. Bowel sounds present in all 4 quadrants. MUSCULOSKELETAL:? No cyanosis no visible joint swelling. NEUROLOGICAL: CN II-XII grossly intact. No focal deficits. Sensation intact, symmetric. PSYCHIATRIC: Awake and alert, not agitated, normal mood and affec INTEGUMENTARY: No obvious rashes, no jaundice, normal turgor. Objective Labs 03/08/25 04:11 03/08/25 04:11 Labs: Laboratory Results - last 24 hr 03/05/25 03/07/25 05:49 04:46 WBC 7.1 RBC 5.17 Hgb 15.6 Hct 45.9 MCV 89 MCH 30.2 MCHC 34.0 RDW Std Deviation 47.0 H Plt Count 252 Neut % (Auto) 58 Lymph % (Auto) 24 Wheeler % (Auto) 14 H Eos % (Auto) 4 Baso % (Auto) 1 Neut # (Auto) 4.1 Lymph # (Auto) 1.7 Wheeler # (Auto) 1.0 H Eos # (Auto) 0.3 Baso # (Auto) 0.1 Immature Gran # (Auto) 0.01 H Absolute Nucleated RBC 0.00 Immature Gran % 0 Nucleated RBC % 0 Sodium 137 Potassium 3.9 D Chloride 100 Carbon Dioxide 27.3 Anion Gap 10 BUN 13 Creatinine 1.0 Estim Creat Clear Calc 78.8 eGFR > 60 BUN/Creatinine Ratio 13 Glucose 84 Calculated Osmolality 272 L Calcium 9.3 Corrected Calcium 9.4 Phosphorus 3.7 Magnesium 1.8 Total Bilirubin 2.0 H AST 28 ALT 22 Alkaline Phosphatase 143 H Total Protein 6.3 Albumin 3.9 Globulin 2.4 Albumin/Globulin Ratio 1.6 Vitamin B12 911 Folate 15.15 ABG Interpretation ABG results: 03/04/25 07:15 ABG pH 7.46 H ABG pCO2 32 ABG pO2 95 ABG HCO3 23 ABG O2 Saturation 99 H ABG Base Excess 0 Quality Measures Quality Measures VTE prophylaxis Assessment & Plan Assessment Current Active Medications: Generic Name Dose Route Start Last Admin Trade Name Freq PRN Reason Stop Dose Admin Acetaminophen 650 mg 03/04/25 06:12 Acetaminophen 325 Mg Tablet PO 04/03/25 06:11 Q6H PRN Fever >100.4 or pain (1-3) Carvedilol 3.125 mg 03/06/25 08:10 03/06/25 17:51 Carvedilol 3.125 Mg Tablet PO 04/05/25 08:09 Not Given BIDWM [facility] Dapagliflozin 10 mg 03/04/25 09:00 03/06/25 08:23 Dapagliflozin Propanediol 5 Mg Tablet PO 04/03/25 08:59 10 mg QAM MARY Administration Furosemide 20 mg 03/07/25 18:00 Furosemide 20 Mg Tablet PO 04/06/25 04:59 BIDD AMRY Heparin Sodium (Porcine) 5,000 unit 03/04/25 09:00 03/06/25 20:25 Heparin Sod Inj 5000 Unit/Ml Vial SC 03/18/25 08:59 5,000 unit Q12HR MARY Administration Lisinopril 5 mg 03/06/25 11:00 03/06/25 11:53 Lisinopril 2.5 Mg Tablet PO 04/05/25 10:59 Not Given QDAY MARY Ondansetron HCl 4 mg 03/04/25 06:12 Ondansetron Inj 2 Mg/Ml Inj 2 Ml IVP 04/03/25 06:11 Q6H PRN NAUSEA OR VOMITING Protocol Sennosides 1 tab 03/04/25 09:00 03/06/25 08:23 Senna Tablet PO 04/03/25 08:59 1 tab QDAY MRAY Administration Protocol Plan 50-year-old male with hypertension, CHF (LVEF 20%), dilated cardiomyopathy, mild valve regurgitation, pulmonary hypertension, asthma, and substance use disorder (methamphetamine and alcohol) presents via EMS with shortness of breath. Patient admitted for acute exacerbation of CHF, undergoing initiation of GDMT. 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 JDV and pitting edema 2, now resolved He has past meth use, quit 5 months ago. Now sober 1-2 months On admit BNP> 3280 Echo with LVEF 10-15% Left ventricle size is severely enlarged and systolic function is severely reduced with indeterminate diastolic dysfunction Plan - Cardiology consulted, appreciate recommendations , Anumandla Given the history of active and longstanding methamphetamine abuse patient is not a candidate for ICD placement. 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 (last utox with methamphetamine positive, was in 2019) - Daily weights - pt able to void independently, no rain indicated - Strict INOs - Low sodium diet - Restrict fluid to 1800mL - Keep potassium >4, mag >2 - Daily CBC, CMP - oxygen/respiratory support - Optimization of GDMT: carvedilol 3.125 BID, lisinopril 5mg qd, Dapagliflozin 10 mg qd, consider aldactone tomorrow if bp permits (hold parameters in place for sbp<100). Currently on Lasix 40 PO BID, Metoprolol succinate XL 25 PO daily #NSTEMI, type II #Troponinemia - resolved Patient denies any chest pain. EKG showed sinus tachycardia, LBBB, QTc of 524, without significant ST changes. Troponins on admission 0.049, peak 0.05, now downtrending Plan - CARDS consulted, appreciate recs - see above #Unsustained Vtach Asymptomatic Plan: - Cardio consulted, appreciate recs #Evidence of hepatic congestion (liver stasis) #Elevated Alk Phos #Elevated bilirubin - uptrending Cr 1.8 on admission. Direct 0.[address] abd/pelvis with elevated t bill i/s/o congestion and alcohol use. Anticipate improvement with diuresis. Has no abdominal pain on exam. GBUS with some gb wall thickening Hep panel negative Plan - Daily CMP - diuresis as above #Subclinical Hypothyroidism TSH 5.97 TSH 1.51 wnl Plan: - recommend outpatient follow up with pcp #Hx Polysubstance Use Disorder #Methamphetamine Use disorder #Alcohol Use disorder Utox negative on this admission Ethyl alchohol level <3 Last utox that was positive for meth was in 2019. negative since then. pt reports that he quit drinking ~1-2 months ago Plan: - cessation counseling - consider CIWA if agitated overnight, but don't anticipate that he will enter withdrawal #Prediabetes A1c 6.0 Plan: - breastfeeding peer counselor on dietary changes - consider metformin on discharge - PCP follow up Health Maintenance: Diet: Cardiac diet, fluid restriction 1.8 L, on gdmt initiation with plan to uptitrate. GI prophylaxis: None DVT prophylaxis: Heparin 5000u SC every 12 hours Antibiotics: None CODE STATUS: Full Disposition: Telemetry Plan discussed with my attending Dr. Kwok and my senior Dr. Avel Pierre MD PGY1 Attending Provider Attestation/Addendum Patient seen and examined at bedside with resident. Agree with assessment and plan as documented above. Continue to titrate GDMT as tolerated Amauri Kwok MD
--- NOTE | 2025-03-07 08:48 | PD.RESPRO ---
Documentation for date of: 03/07/25 Subjective Subjective Interval history: mary is a 50-year-old male with past medical history of hypertension, HFrEF 20-25%, dilated cardiomyopathy, active methamphetamine and alcohol abuse presented to [facility] with chief complaints of shortness of breath and worsening lower extremity edema. Patient was admitted to the hospital in 2019 for the same reason, found to have a HFrEF of 20%, patient at that time was actively using methamphetamine, was extensively consulted regarding side effects of substance abuse. However patient continued to using. His symptoms has been going on for last several days, acutely getting wore even at rest as well, associated with severe limitation of his daily activities. Patient also noticed lower extremity edema that was progressively getting worse. Patient stated that about a month ago he stopped drinking, however continued to active using methamphetamine. 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 He is not very compliant with the doctors, however recently was checked by PCP and was referred to get the echo which he never did, and since his symptoms continue to worsen he decided to present to ED for further evaluation. ED course CMP showed glucose of 119, T. bili 1.8 , AST 35, ALP 177, LDH 315, troponin 0.0 49, BNP above 3280, TSH 5.97 EKG showed sinus tachycardia, LBBB, QTc of 524, without significant ST changes. Chest x-ray showed significant vascular congestion, CTA was negative for PE Venous Doppler ultrasound was negative for any DVTs In ED patient received nitroglycerin patch, morphine, Lasix 80 mg and metoprolol 25 mg x 1 Patient was admitted for acute on chronic CHF exacerbation treatment management. Cardiology was consulted for further recommendations. 03/05/25:Patient was seen and examined at bedside. No acute overnight events. Vitals are stable, patient saturating 96% on room air. Continue to be on Lasix 40 twice daily. Net 460, patient weight down from 72 to 66 kg. Continue active diuresis, if vitals are stable, patient can be initiated on GDMT, will can introduce metoprolol slowly, patient will need outpatient close follow-up with cardiology. 03/07/25:Patient was seen and examined at bedside. No acute overnight events. Labs are stable, patient currently is on metoprolol XL 25 mg daily, heart rate is 54, however patient denies any dizziness, shortness of breath, or any other symptoms. Currently patient is on Lasix 40 mg IV twice daily per primary team, urine output is since yesterday more than 3 L, patient down from 72 kg to 63 kg since admission. From cardiology standpoint patient can be continued on metoprolol XL 25, can be discharged with Lasix 40 p.o. daily, and if blood pressure is in the normal range and if patient tolerates can be given half tablet of Entresto twice daily. Patient is saturating in room air, today upon my evaluation was hemodynamically stable. Patient will need close follow-up outpatient with cardiology to optimize GDMT Exam Vital Signs Temp Pulse Resp BP Pulse Ox O2 Del Method 97.0 F 69 20 116/80 95 Room Air 03/07/25 04:00 03/07/25 07:16 03/07/25 07:16 03/07/25 06:05 03/07/25 07:16 03/07/25 04:00 Narrative Exam GENERAL: no acute distress, AAO x3, well nourished. HEENT: Head AT/ NC. Mucous membranes moist. PERRL. NECK: Supple, no lymphadenopathy, no carotid bruits. CARDIOVASCULAR: RRR. Normal S1/S2, No m/r/g. 1 + pitting edema of bilateral LEs. RESPIRATORY: CTAB. No wheezing, rhonchi GASTROINTESTINAL: Abdomen soft, non tender no palpable masses. Bowel sounds present in all 4 quadrants. MUSCULOSKELETAL:? No cyanosis no visible joint swelling. NEUROLOGICAL: CN II-XII grossly intact. No focal deficits. Sensation intact, symmetric. PSYCHIATRIC: Awake and alert, not agitated, normal mood and affect. INTEGUMENTARY: No obvious rashes, no jaundice, normal turgor. Objective Labs 03/07/25 04:46 03/07/25 04:46 Labs: Laboratory Results - last 24 hr 03/05/25 03/07/25 05:49 04:46 WBC 7.1 RBC 5.17 Hgb 15.6 Hct 45.9 MCV 89 MCH 30.2 MCHC 34.0 RDW Std Deviation 47.0 H Plt Count 252 Neut % (Auto) 58 Lymph % (Auto) 24 [place] % (Auto) 14 H Eos % (Auto) 4 Baso % (Auto) 1 Neut # (Auto) 4.1 Lymph # (Auto) 1.7 [place] # (Auto) 1.0 H Eos # (Auto) 0.3 Baso # (Auto) 0.1 Immature Gran # (Auto) 0.01 H Absolute Nucleated RBC 0.00 Immature Gran % 0 Nucleated RBC % 0 Sodium 137 Potassium 3.9 D Chloride 100 Carbon Dioxide 27.3 Anion Gap 10 BUN 13 Creatinine 1.0 Estim Creat Clear Calc 78.8 eGFR > 60 BUN/Creatinine Ratio 13 Glucose 84 Calculated Osmolality 272 L Calcium 9.3 Corrected Calcium 9.4 Phosphorus 3.7 Magnesium 1.8 Total Bilirubin 2.0 H AST 28 ALT 22 Alkaline Phosphatase 143 H Total Protein 6.3 Albumin 3.9 Globulin 2.4 Albumin/Globulin Ratio 1.6 Vitamin B12 911 Folate 15.15 ABG Interpretation ABG results: 03/04/25 07:15 ABG pH 7.46 H ABG pCO2 32 ABG pO2 95 ABG HCO3 23 ABG O2 Saturation 99 H ABG Base Excess 0 Quality Measures Quality Measures VTE prophylaxis Assessment & Plan Assessment Current Active Medications: Generic Name Dose Route Start Last Admin Trade Name Freq PRN Reason Stop Dose Admin Acetaminophen 650 mg 03/04/25 06:12 Acetaminophen 325 Mg Tablet PO 04/03/25 06:11 Q6H PRN Fever >100.4 or pain (1-3) Furosemide 40 mg 03/07/25 08:45 Furosemide Inj 10 Mg/Ml 4ml Vial IVP 04/06/25 08:44 BIDD MARY Heparin Sodium (Porcine) 5,000 unit 03/04/25 09:00 03/06/25 20:25 Heparin Sod Inj 5000 Unit/Ml Vial SC 03/18/25 08:59 5,000 unit Q12HR MARY Administration Magnesium Sulfate 4 gm in 50 mls @ 12.5 mls/hr 03/07/25 08:21 Magnesium Sulfate Ivpb IV 03/07/25 12:20 X1 ONE Magnesium Sulfate 4 gm in 50 mls @ 12.5 mls/hr 03/07/25 08:37 Magnesium Sulfate Ivpb IV 03/07/25 12:36 X1 ONE Metoprolol Succinate 25 mg 03/07/25 09:00 Metoprolol Succinate Xl 25 Mg Tabcr PO 04/06/25 08:59 QDAY MARY Ondansetron HCl 4 mg 03/04/25 06:12 Ondansetron Inj 2 Mg/Ml Inj 2 Ml IVP 04/03/25 06:11 Q6H PRN NAUSEA OR VOMITING Protocol Potassium Chloride 40 meq 03/07/25 08:37 Potassium Chloride 20 Meq Tabcr PO 03/07/25 08:38 X1 ONE Sennosides 1 tab 03/04/25 09:00 03/06/25 08:23 Senna Tablet PO 04/03/25 08:59 1 tab QDAY MARY Administration Protocol Plan 50-year-old male with hypertension, CHF (LVEF 20%), dilated cardiomyopathy, mild valve regurgitation, pulmonary hypertension, asthma, and substance use disorder (methamphetamine and alcohol) presents via EMS with shortness of breath. Patient admitted for acute exacerbation of CHF. #Acute on chronic CHF exacerbation #[id number]% NYHA class IV with sever dispnea and marked limitation Patient with known LVEF 20-25% presents with sever dispnea on exertion, increased fatigue and worsening exercise tolerance consistent with decompensated HF. Echo from 02/08/2020 showed EF 20%, moderate tricuspid regurgitation, moderate pulmonary hypertension. Exam was notable for LE edema, CXR showed vascular congestion and mild HF BNP >3280 He received 80 mg IV Lasix in the ED. ECHO:2019 Dilated cardiomyopathy with severe global hypokinesis Approximate ejection fraction is 20%. Mild aortic, pulmonic and mild to moderate mitral regurgitation. Moderate tricuspid regurgitation Moderate PHTN. ECHO:03/04/25: Summary 1. The echocardiogram is normal by two-dimensional, color flow imaging, and Doppler interrogation. 2. Left ventricle size is severely enlarged and systolic function is severely reduced. Estimated ejection fraction is 10-15%. There is indeterminate diastolic function. 3. Right ventricle chamber size is mildly enlarged and systolic function is normal. Estimated RVSP is 45- 50 mm hg. 4. There is mild to moderate mitral valve regurgitation. mild TR. Trace AI. 5. Dilated IVC with estimated RA pressure 15 mmHg. Trace to small pericardial effusion with no tamponade. Recomendations BUN and creatinine are improving Total Bilrubin downtrending but still elevated probably due to slight hepatic congestion from HF .Can be benefitted from diuresis.. On IV diuresis with lasix 40 BID, upon discharge can be transitioned to 40 p.o. daily Strict I and Os fluid/salt restriction monitor electrolytes keep K >4, Mg >2. Today the potassium is 3.4 can be benefitted by giving another 60meq of oral potassium oxygen respiratory support Continue metoprolol XL 25 daily Optimization of GDMT as tolerated,after fluid status is stabilised, patient is on low-dose of metoprolol X for now and rest of the goal-directed medical therapy can be started as outpatient as the blood pressure is on the lower side.. If blood pressure is stable, patient can be started on half dose of Entresto twice daily And can be switched from IV Lasix to 40 p.o. Lasix daily upon discharge Monitore BP, HR, electrolyted and renal panel. Given the history of active and longstanding methamphetamine abuse, patient also does not have any evidence of any active arrhythmias patient is not a candidate for ICD placement at the present point of time. Patient will need to completely quit his substance abuse and follow-up with primary and have repeat urine toxin perforormed. Patient will need to be on optimize GDMT therapy, close follow-up with magisterial district judge and quit polysubstance abuse. #NSTEMI, type II demand ischemia Patient denies any chest pain. EKG negative for any acute ischemic ST changes, rate 104, QTc 524. Troponins on admission 0.049 #Elevated T. Jose #Hepatomegaly most likely 2/2 hepatic congestion responding to IV dieresis #Polysubstance abuse #Methamphetamine abuse #Alcohol use disorder Patient was extensively counseled Patient care was discussed with attending physician Dr. Linette Coronel MD PGY-3 I have carefully reviewed this document. Due to imperfections in the voice software, there could be grammatical errors including phonetic/typographic errors. This in no way compromises the medical care the patient is receiving Attending Provider Attestation/Addendum I have personally seen and examined the patient separately on the above date of service and discussed the plan of care with the resident. I reviewed the resident Dr. Yoly Britt consultation progress note and agree with the resident findings and plan in the note above and have also edited the documentation to reflect my findings and plan. German Sue M.D. Interventional Cardiology
[2025-03-07] MEDS: METOPROLOL SUCCINATE XL 25 MG TABCR PO (08:54)
[2025-03-07] MEDS: FUROSEMIDE INJ 10 MG/ML 4ML VIAL 40 MG IVP ×2 (08:55→18:53)
[2025-03-07] MEDS: Magnesium Sulfate 4 GM Ivpb 4 GM/50 ML BAG IV (08:56)
[2025-03-07] MEDS: HEPARIN SOD INJ 5000 UNIT/ML VIAL SC ×2 (08:57→21:10)
--- NOTE | 2025-03-07 13:54 | EKG_ITS ---
[facility] Test Date: 2025-03-07 Pat Name: JUAN F WAHL Department: Room: S353-A Gender: Male Medical Records Coordinator: ROBERT : 1975 Requested By: Thalia Duncan Order Number: [id number] Reading MD: Thalia Duncan Measurements Intervals [place] Rate: 67 P: 66 DC: 211 QRS: -42 QRSD: 210 T: 97 QT: 503 QTc: 534 Interpretive Statements SINUS RHYTHM WITH FIRST DEGREE AV BLOCK WITH OCCASIONAL VENTRICULAR PREMATURE COMPLEXES RIGHT ATRIAL ENLARGEMENT LEFT ATRIAL ENLARGEMENT INDETERMINATE AXIS LEFT BUNDLE BRANCH BLOCK LATERAL MYOCARDIAL INFARCTION , PROBABLY RECENT ACUTE MO Compared to ECG 03/04/2025 02:47:51 Ventricular premature complex(es) now present First degree AV block now present Myocardial infarct finding now present Sinus tachycardia no longer present /store/S0/[id number].pdf
[2025-03-08] VITALS (9 sets, daily range): BP systolic 97–109; BP diastolic 73–78; PULSE 56–103; RESP 16–19; TEMP 36.1–36.6; O2SAT 93–100
[2025-03-08] MEDS: FUROSEMIDE INJ 10 MG/ML 4ML VIAL 40 MG IVP (05:39)
[2025-03-08 05:45] LABS: Basophils # (Auto) 0.1 Thou/mm3 (0.0-0.2); Basophils % (Auto) 2 % (0-2.5); Eosinophils # (Auto) 0.2 Thou/mm3 (0.0-0.5); Eosinophils % (Auto) 3 % (0-10); Hematocrit 52.6 % (41.0-53.0); Hemoglobin 18.1 g/dL (13.5-16.0); Immature Granulocytes Auto 0.02 Thou/mm3 (0.00-0.00); Lymphocytes # (Auto) 1.9 Thou/mm3 (1.0-4.8); Lymphocytes % (Auto) 26 % (10-50); Mean Corpuscular HGB Conc 34.4 g/dl (31.0-37.0); Mean Corpuscular Hemoglobin 30.6 pg (25.0-35.0); Mean Corpuscular Volume 89 fL (80-100); Monocytes # (Auto) 0.9 Thou/mm3 (0.0-0.8); Monocytes % (Auto) 12 % (0-12); Neutrophils # (Auto) 4.1 Thou/mm3 (1.8-7.7); Neutrophils % (Auto) 57 % (37-80); Nucleated Red Blood Cell # 0.00 Thou/mm3 (0.00-0.00); Nucleated Red Blood Cell % 0 /100 WBC (0); Platelet Count 279 Thou/mm3 (140-440); RDW Standard Deviation 47.4 fL (35.1-43.9); Red Blood Count 5.91 Miln/mm3 (4.50-5.90); White Blood Count 7.2 Thou/mm3 (3.8-10.6)
[2025-03-08 06:16] LABS: Alanine Aminotransferase 28 U/L (10-49); Albumin, Serum 4.3 gm/dL (3.5-5.0); Albumin/Globulin Ratio 1.9 (1.2-2.2); Alkaline Phosphatase 157 U/L (46-116); Anion Gap 11 (7-16); Aspartate Amino Transferase 33 U/L (0-34); BUN/Creatinine Ratio 15 Ratio (12-20); Bilirubin,Total 2.0 mg/dL (0.3-1.2); Blood Urea Nitrogen 16 mg/dL (9-23); Calcium 9.1 mg/dL (8.3-10.6); Calcium (Corrected) 9.1 mg/dL (8.5-10.1); Carbon Dioxide 29.2 mMol/L (20.0-31.0); Chloride 96 mMol/L (98-107); Creatinine (Component) 1.1 mg/dL (0.6-1.3); Estimated Creatinine Clearance 70.4 mL/min (>60); Globulin 2.3 gm/dL (2.3-3.5); Glucose 82 mg/dL (74-106); Magnesium 2.3 mg/dL (1.6-2.6); Osmolality,Calculated 272 (275-295); Phosphorous 3.0 mg/dL (2.4-5.1); Potassium 3.7 mMol/L (3.4-5.1); Sodium 136 mMol/L (136-145); Total Protein 6.6 gm/dL (5.7-8.2); eGFR > 60 See Note
--- NOTE | 2025-03-08 08:14 | PD.RESPRO ---
Documentation for date of: 03/08/25 Exam Vital Signs Temp Pulse Resp BP Pulse Ox O2 Del Method 97.8 F 65 16 103/77 100 Room Air 03/08/25 07:02 03/08/25 07:02 03/08/25 07:02 03/08/25 07:02 03/08/25 07:02 03/08/25 07:02 Narrative Exam GENERAL: no acute distress, AAO x3, thin HEENT: Head AT/ NC. Mucous membranes moist. PERRL. NECK: Supple, no lymphadenopathy, no carotid bruits. CARDIOVASCULAR: RRR. Normal S1/S2, No m/r/g. no pitting edema of LE observed RESPIRATORY: CTAB, symmetric chest rise GASTROINTESTINAL: Abdomen soft, non tender no palpable masses. Bowel sounds present in all 4 quadrants. MUSCULOSKELETAL:? No cyanosis no visible joint swelling. NEUROLOGICAL: CN II-XII grossly intact. No focal deficits. Sensation intact, symmetric. PSYCHIATRIC: Awake and alert, not agitated, normal mood and affec INTEGUMENTARY: No obvious rashes, no jaundice, normal turgor. Objective Labs 03/08/25 04:11 03/08/25 04:11 Labs: Laboratory Results - last 24 hr 03/08/25 04:11 WBC 7.2 RBC 5.91 H Hgb 18.1 H* D Hct 52.6 MCV 89 MCH 30.6 MCHC 34.4 RDW Std Deviation 47.4 H Plt Count 279 Neut % (Auto) 57 Lymph % (Auto) 26 [place] % (Auto) 12 Eos % (Auto) 3 Baso % (Auto) 2 Neut # (Auto) 4.1 Lymph # (Auto) 1.9 [place] # (Auto) 0.9 H Eos # (Auto) 0.2 Baso # (Auto) 0.1 Immature Gran # (Auto) 0.02 H Absolute Nucleated RBC 0.00 Immature Gran % 0 Nucleated RBC % 0 Sodium 136 Potassium 3.7 Chloride 96 L Carbon Dioxide 29.2 Anion Gap 11 BUN 16 Creatinine 1.1 Estim Creat Clear Calc 70.4 eGFR > 60 BUN/Creatinine Ratio 15 Glucose 82 Calculated Osmolality 272 L Calcium 9.1 Corrected Calcium 9.1 Phosphorus 3.0 Magnesium 2.3 Total Bilirubin 2.0 H AST 33 ALT 28 Alkaline Phosphatase 157 H Total Protein 6.6 Albumin 4.3 Globulin 2.3 Albumin/Globulin Ratio 1.9 ABG Interpretation ABG results: 03/04/25 07:15 ABG pH 7.46 H ABG pCO2 32 ABG pO2 95 ABG HCO3 23 ABG O2 Saturation 99 H ABG Base Excess 0 Quality Measures Quality Measures VTE prophylaxis Assessment & Plan Assessment Current Active Medications: Generic Name Dose Route Start Last Admin Trade Name Freq PRN Reason Stop Dose Admin Acetaminophen 650 mg 03/04/25 06:12 Acetaminophen 325 Mg Tablet PO 04/03/25 06:11 Q6H PRN Fever >100.4 or pain (1-3) Furosemide 40 mg 03/07/25 08:45 03/08/25 05:39 Furosemide Inj 10 Mg/Ml 4ml Vial IVP 04/06/25 08:44 40 mg BIDD MARY Administration Heparin Sodium (Porcine) 5,000 unit 03/04/25 09:00 03/07/25 21:10 Heparin Sod Inj 5000 Unit/Ml Vial SC 03/18/25 08:59 5,000 unit Q12HR MARY Administration Metoprolol Succinate 25 mg 03/07/25 09:00 03/07/25 08:54 Metoprolol Succinate Xl 25 Mg Tabcr PO 04/06/25 08:59 25 mg QDAY MARY Administration Ondansetron HCl 4 mg 03/04/25 06:12 Ondansetron Inj 2 Mg/Ml Inj 2 Ml IVP 04/03/25 06:11 Q6H PRN NAUSEA OR VOMITING Protocol Sacubitril/Valsartan 0.5 tab 03/07/25 21:00 03/07/25 21:08 Sacubitril 24 Mg/Valsartan 26 Mg Tablet PO 04/06/25 20:59 0.5 tab BID MARY Administration Sennosides 1 tab 03/04/25 09:00 03/07/25 08:54 Senna Tablet PO 04/03/25 08:59 1 tab QDAY MARY Administration Protocol Plan 50-year-old male with hypertension, CHF (LVEF 20%), dilated cardiomyopathy, mild valve regurgitation, pulmonary hypertension, asthma, and substance use disorder (methamphetamine and alcohol) presents via EMS with shortness of breath. Patient admitted for acute exacerbation of CHF, undergoing initiation of GDMT. 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 JDV and pitting edema 2, now resolved He has past meth use, quit 5 months ago. Now sober 1-2 months On admit BNP> 3280 Echo with LVEF 10-15% Left ventricle size is severely enlarged and systolic function is severely reduced with indeterminate diastolic dysfunction down from 72 kg to 63 kg since admission Plan - Cardiology consulted, appreciate recommendations , Anumandla Given the history of active and longstanding methamphetamine abuse patient is not a candidate for ICD placement. Patient will need to be on optimize GDMT therapy, close follow-up with lead mechanical engineer and quit polysubstance abuse utox negative on admission, no meth, no alcohol. (last utox with methamphetamine positive, was in 2019) - Daily weights - pt able to void independently, no rain indicated - Strict INOs - Low sodium diet - Restrict fluid to 1800mL - Keep potassium >4, mag >2 - Daily CBC, CMP - oxygen/respiratory support - Optimization of GDMT: carvedilol 3.125 BID, lisinopril 5mg qd, Dapagliflozin 10 mg qd, consider aldactone tomorrow if bp permits (hold parameters in place for sbp<100). Currently on Lasix 40 PO BID, Metoprolol succinate XL 25 PO daily - Per cardiology: continue metoprolol XL 25, can be discharged with Lasix 40 p.o. daily, and if blood pressure is in the normal range and if patient tolerates can be given half tablet of Entresto twice daily #NSTEMI, type II #Troponinemia - resolved Patient denies any chest pain. EKG showed sinus tachycardia, LBBB, QTc of 524, without significant ST changes. Troponins on admission 0.049, peak 0.05, now downtrending Plan - CARDS consulted, appreciate recs - see above #Unsustained Vtach Asymptomatic Plan: - Cardio consulted, appreciate recs #Evidence of hepatic congestion (liver stasis) #Elevated Alk Phos #Elevated bilirubin - uptrending Cr 1.8 on admission. Direct 0.[address] abd/pelvis with elevated t bill i/s/o congestion and alcohol use. Anticipate improvement with diuresis. Has no abdominal pain on exam. GBUS with some gb wall thickening Hep panel negative Plan - Daily CMP - diuresis as above #Subclinical Hypothyroidism TSH 5.97 TSH 1.51 wnl Plan: - recommend outpatient follow up with pcp #Hx Polysubstance Use Disorder #Methamphetamine Use disorder #Alcohol Use disorder Utox negative on this admission Ethyl alchohol level <3 Last utox that was positive for meth was in 2019. negative since then. pt reports that he quit drinking ~1-2 months ago Plan: - cessation counseling - consider CIWA if agitated overnight, but don't anticipate that he will enter withdrawal #Prediabetes A1c 6.0 Plan: - vocational counselor on dietary changes - consider metformin on discharge - PCP follow up Health Maintenance: Diet: Cardiac diet, fluid restriction 1.8 L, on gdmt initiation with plan to uptitrate. GI prophylaxis: None DVT prophylaxis: Heparin 5000u SC every 12 hours Antibiotics: None CODE STATUS: Full Disposition: Telemetry Plan discussed with Dr. Philly Vallecillo and Dr. Dawit Pierre MD PGY1
--- NOTE | 2025-03-08 08:25 | ESPR_ITS ---
Documentation for date of: 03/08/25 Subjective Subjective Interval history: mary is a 50-year-old male with past medical history of hypertension, HFrEF 20-25%, dilated cardiomyopathy, active methamphetamine and alcohol abuse presented to [facility] with chief complaints of shortness of breath and worsening lower extremity edema. Patient was admitted to the hospital in 2019 for the same reason, found to have a HFrEF of 20%, patient at that time was actively using methamphetamine, was extensively consulted regarding side effects of substance abuse. However patient continued to using. His symptoms has been going on for last several days, acutely getting wore even at rest as well, associated with severe limitation of his daily activities. Patient also noticed lower extremity edema that was progressively getting worse. Patient stated that about a month ago he stopped drinking, however continued to active using methamphetamine. 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 He is not very compliant with the doctors, however recently was checked by PCP and was referred to get the echo which he never did, and since his symptoms continue to worsen he decided to present to ED for further evaluation. ED course CMP showed glucose of 119, T. bili 1.8 , AST 35, ALP 177, LDH 315, troponin 0.0 49, BNP above 3280, TSH 5.97 EKG showed sinus tachycardia, LBBB, QTc of 524, without significant ST changes. Chest x-ray showed significant vascular congestion, CTA was negative for PE Venous Doppler ultrasound was negative for any DVTs In ED patient received nitroglycerin patch, morphine, Lasix 80 mg and metoprolol 25 mg x 1 Patient was admitted for acute on chronic CHF exacerbation treatment management. Cardiology was consulted for further recommendations. 03/05/25:Patient was seen and examined at bedside. No acute overnight events. Vitals are stable, patient saturating 96% on room air. Continue to be on Lasix 40 twice daily. Net 460, patient weight down from 72 to 66 kg. Continue active diuresis, if vitals are stable, patient can be initiated on GDMT, will can introduce metoprolol slowly, patient will need outpatient close follow-up with cardiology. 03/07/25:Patient was seen and examined at bedside. No acute overnight events. Labs are stable, patient currently is on metoprolol XL 25 mg daily, heart rate is 54, however patient denies any dizziness, shortness of breath, or any other symptoms. Currently patient is on Lasix 40 mg IV twice daily per primary team, urine output is since yesterday more than 3 L, patient down from 72 kg to 63 kg since admission. From cardiology standpoint patient can be continued on metoprolol XL 25, can be discharged with Lasix 40 p.o. daily, and if blood pressure is in the normal range and if patient tolerates can be given half tablet of Entresto twice daily. Patient is saturating in room air, today upon my evaluation was hemodynamically stable. Patient will need close follow-up outpatient with cardiology to optimize GDMT 03/08/25: No acute overnight events. Labs and vitals are stable. Patient is currently on metoprolol XL 25 mg daily, yesterday started on Entresto 0.5 mg twice daily, tolerated well. Patient continues to be on 40 mg of Lasix twice daily, labs revealed hemoconcentration with hemoglobin of 18.1, hematocrit 52.6, renal panel within normal limits, however BUN and creatinine ratio went up from 13 to 15. We will recommend to go down on diuretic, patient can be transition to p.o. Lasix 40 mg daily as fluid status appears to be stable, patient had total of 1800 urine output. Saturating in room air. Denies any chest pain, shortness of breath, palpitation, lower extremity edema completely subsided. Patient states that overall feels well. Patient also stated that he stopped substance abuse last 3 months. Patient should follow-up outpatient with to optimize GDMT and to discuss further plan of management. Exam Vital Signs Temp Pulse Resp BP Pulse Ox O2 Del Method 97.8 F 65 16 103/77 100 Room Air 03/08/25 07:02 03/08/25 07:02 03/08/25 07:02 03/08/25 07:02 03/08/25 07:02 03/08/25 07:02 Narrative Exam GENERAL: no acute distress, AAO x3, well nourished. HEENT: Head AT/ NC. Mucous membranes moist. PERRL. NECK: Supple, no lymphadenopathy, no carotid bruits. CARDIOVASCULAR: RRR. Normal S1/S2, No m/r/g. 1 + pitting edema of bilateral LEs. RESPIRATORY: CTAB. No wheezing, rhonchi GASTROINTESTINAL: Abdomen soft, non tender no palpable masses. Bowel sounds present in all 4 quadrants. MUSCULOSKELETAL:? No cyanosis no visible joint swelling. NEUROLOGICAL: CN II-XII grossly intact. No focal deficits. Sensation intact, symmetric. PSYCHIATRIC: Awake and alert, not agitated, normal mood and affect. INTEGUMENTARY: No obvious rashes, no jaundice, normal turgor. Objective Labs 03/08/25 04:11 03/08/25 04:11 Labs: Laboratory Results - last 24 hr 03/08/25 04:11 WBC 7.2 RBC 5.91 H Hgb 18.1 H* D Hct 52.6 MCV 89 MCH 30.6 MCHC 34.4 RDW Std Deviation 47.4 H Plt Count 279 Neut % (Auto) 57 Lymph % (Auto) 26 [place] % (Auto) 12 Eos % (Auto) 3 Baso % (Auto) 2 Neut # (Auto) 4.1 Lymph # (Auto) 1.9 [place] # (Auto) 0.9 H Eos # (Auto) 0.2 Baso # (Auto) 0.1 Immature Gran # (Auto) 0.02 H Absolute Nucleated RBC 0.00 Immature Gran % 0 Nucleated RBC % 0 Sodium 136 Potassium 3.7 Chloride 96 L Carbon Dioxide 29.2 Anion Gap 11 BUN 16 Creatinine 1.1 Estim Creat Clear Calc 70.4 eGFR > 60 BUN/Creatinine Ratio 15 Glucose 82 Calculated Osmolality 272 L Calcium 9.1 Corrected Calcium 9.1 Phosphorus 3.0 Magnesium 2.3 Total Bilirubin 2.0 H AST 33 ALT 28 Alkaline Phosphatase 157 H Total Protein 6.6 Albumin 4.3 Globulin 2.3 Albumin/Globulin Ratio 1.9 ABG Interpretation ABG results: 03/04/25 07:15 ABG pH 7.46 H ABG pCO2 32 ABG pO2 95 ABG HCO3 23 ABG O2 Saturation 99 H ABG Base Excess 0 Quality Measures Quality Measures VTE prophylaxis Assessment & Plan Assessment Current Active Medications: Generic Name Dose Route Start Last Admin Trade Name Freq PRN Reason Stop Dose Admin Acetaminophen 650 mg 03/04/25 06:12 Acetaminophen 325 Mg Tablet PO 04/03/25 06:11 Q6H PRN Fever >100.4 or pain (1-3) Furosemide 40 mg 03/07/25 08:45 03/08/25 05:39 Furosemide Inj 10 Mg/Ml 4ml Vial IVP 04/06/25 08:44 40 mg BIDD MARY Administration Heparin Sodium (Porcine) 5,000 unit 03/04/25 09:00 03/07/25 21:10 Heparin Sod Inj 5000 Unit/Ml Vial SC 03/18/25 08:59 5,000 unit Q12HR MARY Administration Metoprolol Succinate 25 mg 03/07/25 09:00 03/07/25 08:54 Metoprolol Succinate Xl 25 Mg Tabcr PO 04/06/25 08:59 25 mg QDAY MARY Administration Ondansetron HCl 4 mg 03/04/25 06:12 Ondansetron Inj 2 Mg/Ml Inj 2 Ml IVP 04/03/25 06:11 Q6H PRN NAUSEA OR VOMITING Protocol Sacubitril/Valsartan 0.5 tab 03/07/25 21:00 03/07/25 21:08 Sacubitril 24 Mg/Valsartan 26 Mg Tablet PO 04/06/25 20:59 0.5 tab BID MARY Administration Sennosides 1 tab 03/04/25 09:00 03/07/25 08:54 Senna Tablet PO 04/03/25 08:59 1 tab QDAY MARY Administration Protocol Plan 50-year-old male with hypertension, CHF (LVEF 20%), dilated cardiomyopathy, mild valve regurgitation, pulmonary hypertension, asthma, and substance use disorder (methamphetamine and alcohol) presents via EMS with shortness of breath. Patient admitted for acute exacerbation of CHF. #Acute on chronic CHF exacerbation #HErEF 10-15% NYHA class IV with sever dispnea and marked limitation Patient with known LVEF 20-25% presents with sever dispnea on exertion, increased fatigue and worsening exercise tolerance consistent with decompensated HF. Echo from 02/08/2020 showed EF 20%, moderate tricuspid regurgitation, moderate pulmonary hypertension. Exam was notable for LE edema, CXR showed vascular congestion and mild HF BNP >3280 He received 80 mg IV Lasix in the ED. ECHO:2019 Dilated cardiomyopathy with severe global hypokinesis Approximate ejection fraction is 20%. Mild aortic, pulmonic and mild to moderate mitral regurgitation. Moderate tricuspid regurgitation Moderate PHTN. ECHO:03/04/25: Summary 1. The echocardiogram is normal by two-dimensional, color flow imaging, and Doppler interrogation. 2. Left ventricle size is severely enlarged and systolic function is severely reduced. Estimated ejection fraction is 10-15%. There is indeterminate diastolic function. 3. Right ventricle chamber size is mildly enlarged and systolic function is normal. Estimated RVSP is 45- 50 mm hg. 4. There is mild to moderate mitral valve regurgitation. mild TR. Trace AI. 5. Dilated IVC with estimated RA pressure 15 mmHg. Trace to small pericardial effusion with no tamponade. Recomendations BUN and creatinine are improving Total Bilrubin downtrending but still elevated probably due to slight hepatic congestion from HF .Can be benefitted from diuresis.. On IV diuresis with lasix 40 BID, can be transitioned to 40 p.o. daily Strict I and Os fluid/salt restriction monitor electrolytes keep K >4, Mg >2. Today the potassium is 3.4 can be benefitted by giving another 60meq of oral potassium oxygen respiratory support Continue metoprolol XL 25 daily Optimization of GDMT as tolerated,after fluid status is stabilised, patient is on low-dose of metoprolol X for now and 0.5 mg of Entresto twice daily rest of the goal-directed medical therapy can be started as outpatient as the blood pressure is on the lower side.. And can be switched from IV Lasix to 40 p.o. Lasix daily upon discharge Monitore BP, HR, electrolyted and renal panel. Outpatient follow-up with Given the history of longstanding methamphetamine abuse, patient also does not have any evidence of any active arrhythmias patient is not a candidate for ICD placement at the present point of time. Patient will need to completely quit his substance abuse and follow-up with primary and have repeat urine toxin perforormed. 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 #NSTEMI, type II demand ischemia Patient denies any chest pain. EKG negative for any acute ischemic ST changes, rate 104, QTc 524. Troponins on admission 0.049 #Elevated T. Jose #Hepatomegaly most likely 2/2 hepatic congestion responding to IV dieresis #Polysubstance abuse #Methamphetamine abuse #Alcohol use disorder Patient was extensively counseled Patient care was discussed with attending physician Dr. Linette Coronel MD PGY-3 I have carefully reviewed this document. Due to imperfections in the voice software, there could be grammatical errors including phonetic/typographic errors. This in no way compromises the medical care the patient is receiving Attending Provider Attestation/Addendum I have personally seen and examined the patient separately on the above date of service and discussed the plan of care with the resident. I reviewed the resident Yoly Britt consultation progress note and agree with the resident findings and plan in the note above and have also edited the documentation to reflect my findings and plan. German Sue M.D. Interventional Cardiology
[2025-03-08] MEDS: METOPROLOL SUCCINATE XL 25 MG TABCR PO (08:42)
[2025-03-08] MEDS: HEPARIN SOD INJ 5000 UNIT/ML VIAL SC (08:43)
--- NOTE | 2025-03-08 11:03 | ESDS_ITS ---
<Statement entered by Thais Pastor MD - 03/14/25 15:20> I reviewed above note and agree with findings and plans. I have also personally examined the patient with medicine team and went over assessment and plan with medical team including healthcare administration internship and resident physician. Planned Discharge Date 03/08/25 DS: Providers Provider Date of admission: 03/07/25 09:30 Primary care physician: Physician No Primary/Family Admitting Provider: Francisco Gross MD Attending Provider on Admission: Isaac Bettencourt MD Consults: 03/04/25 06:18 Consult to Cardiology Stat Comment: Consulting Provider: German Sue 03/05/25 10:47 Referral Physical Therapy Routine Comment: Physician Instructions: Attending Provider on DC: Dr. Thais Pastor Discharging Provider: Sofía Pierre MD DS: Diagnosis Problem List Completed Was Problem List Reviewed/Reconciled?: Yes Hospital Course Hospital Course Hospital course: Hospital Course Mr. Lo is a 50 y/o male with hypertension, HFrEF c/b hepatic congestion, dilated cardiomyopathy, pulmonary hypertension, and substance use disorder (methamphetamine and alcohol) who presented to the ED on 03/04 with progressively worsening shortness of breath, orthopnea, bilateral leg swelling. Admitted for acute CHF exacerbation. On admit BNP >3280. Echo read by Dr. Carroll, LVEF 10-15% Left ventricle size is severely enlarged and systolic function is severely reduced with indeterminate diastolic dysfunction. Cardiology was consulted. Given history of active and longstanding me thamphetamine abuse patient is not a candidate for ICD placement at this time. He was started on low sodium diet, 1800 mL fluid restriction, and slowly started GDMT as BP permitted. Patient tolerated Lasix 40 mg PO daily and metoprolol 25 mg PO daily. Patient was net negative -1300 mL by end of hospitalization. Patient reports resolved shortness of breath and orthopnea. Physical exam showed no LE edema or JVD at time of discharge. Patient was found to have NSTEMI type II. EKG showed sinus tachycardia, LBBB, QTc of 524, without significant ST changes. Troponins on admission 0.049, peaked 0.05, then downtrended. Vitals continued to be monitored on telemetry throughout hospitalization. Patient hemodynamically stable. Labs reviewed and stable. Patient stable and medically cleared for discharge. Patient to follow up with cardiology outpatient for close monitoring and optimization of GDMT. Diagnoses #Acute CHF exacerbation #HFrEF (EF 10-15% from 03/04/2025 ECHO) #NYHA class IV with severe dyspnea and marked limitation #Diastolic Dysfunction #Dilated cardiomyopathy #NSTEMI, type II #Troponinemia - resolved #Evidence of hepatic congestion (liver stasis) #Subclinical Hypothyroidism #Methamphetamine Use disorder #Alcohol Use disorder #Prediabetes Discharge Instructions - Follow up with PCP within 1 week of discharge, if you do not have a primary care physician you can come see us at the [facility] by calling [phone] - Follow up with cardiology - Take Lasix 40 mg daily and metoprolol succinate 25 mg daily - Continue rest of medications as previously prescribed - Return to the ED or call EMS if symptoms return and/or worsen Sofía Pierre MD PGY1 Time Spent with Patient Time attestation: Total time spent providing and/or coordinating discharge services: Time spent: Greater than 30 minutes Exam Vital Signs Temp Pulse Resp BP Pulse Ox O2 Del Method 97.8 F 65 16 103/77 100 Room Air 03/08/25 07:02 03/08/25 08:42 03/08/25 07:02 03/08/25 08:42 03/08/25 07:02 03/08/25 07:02 Narrative Exam General: No acute distress, thin Eye: PERRL, EOMI, normal conjunctiva, no scleral icterus HENT: Normocephalic, atraumatic, normal hearing, moist oral mucosa Neck: Supple, non-tender, no JVD, no lymphadenopathy Lungs: Clear to auscultation bilaterally, non-labored respirations, symmetric chest rise, no use of accessory muscles Heart: Normal S1 and S2, no S3 or S4 appreciated. Normal rate and regular rhythm, no murmurs, rubs gallops, or edema. Peripheral pulses intact bilaterally, capillary refill brisk distally Abdomen: Soft, non-tender, non-distended, normal bowel sounds. No guarding or rebound tenderness. Musculoskeletal: Normal range of motion and strength, no tenderness or swelling Skin: Skin is warm, dry, no rashes or lesions. Neurologic: Alert, awake and oriented x3. CN II-XII grossly intact. No focal ne uro deficits. No signs of meningeal irritation noted. Psychiatric: Cooperative, appropriate mood and affect Discharge Plan Plan Patient Disposition: HOME (Self Care) Patient condition on transfer: Stable Care Plan Goals: - Follow up with PCP within 1 week of discharge, if you do not have a primary care physician you can come see us at the [facility] by calling [phone] - Follow up with cardiology - Take Lasix 40 mg daily and metoprolol succinate 25 mg daily - Continue rest of medications as previously prescribed - Return to the ED or call EMS if symptoms return and/or worsen Prescriptions/Referrals Prescriptions/Med Rec: New furosemide 40 mg Tablet 40 mg PO QDAY 30 Days Qty: 30 0RF metoprolol succinate 25 mg Tablet Extended Release 24 Hr 25 mg PO QDAY 30 Days Qty: 30 0RF Discontinued lisinopril 2.5 mg Tablet 2.5 mg PO QDAY Qty: 30 0RF lisinopril 20 mg tablet 20 mg PO .QD Patient Comments: TAKE 1 TABLET BY MOUTH EVERY DAY FOR 90 DAYS Referrals: German Sue MD [Physician, Cardiology] No Primary/Family,Physician [Primary Care Provider] Patient/Caregiver Discharge Instructions Education Materials: Chest Echocardiography ..., Coping with Heart Failure, Limiting Fluids Dc, Eating Heart-Healthy Foods Print Language: Irish Stand Alone Forms: Deandra Award Info., Patient Portal Info Letter, Work/Release Restrictions Discharge Order Discharge Orders: Discharge (Routine); Ordered 03/08/25 Ordered By: Fausto Vallecillo Quality Discharge Quality Measures VTE prophylaxis
== END 2025-03-08 12:46 | disposition home or self-care (01) | DRG 194 ==
LOC: SERX 06:09 → SERHOLD 07:26 → S3NX 08:30 → SERHOLD 03-06 09:11
PROVIDERS: Admitting Provider Student in an Organized Health Care Education/Training Program; Emergency Provider Emergency Medicine; Visit Provider Internal Medicine
DX: I11.0 Hypertensive heart disease with heart failure (principal); I42.0 Dilated cardiomyopathy; I34.0 Nonrheumatic mitral (valve) insufficiency; J45.909 Unspecified asthma, uncomplicated; I50.23 Acute on chronic systolic (congestive) heart failure; I21.A1 Myocardial infarction type 2; R17 Unspecified jaundice; I27.20 Pulmonary hypertension, unspecified; I07.1 Rheumatic tricuspid insufficiency; E03.8 Other specified hypothyroidism; R73.03 Prediabetes; I42.7 Cardiomyopathy due to drug and external agent; F10.10 Alcohol abuse, uncomplicated; F17.200 Nicotine dependence, unspecified, uncomplicated; F15.10 Other stimulant abuse, uncomplicated; K76.1 Chronic passive congestion of liver; I47.20 Ventricular tachycardia, unspecified; I44.7 Left bundle-branch block, unspecified; Y90.0 Blood alcohol level of less than 20 mg/100 ml; Z79.899 Other long term (current) drug therapy
CPT/HCPCS: 36415; 36600; 71045; 71275; 74177; 76705; 80053; 80061; 80074; 80307; 80320; 81001; 82140; 82248; 82607; 82746; 82803; 83036; 83615; 83690; 83735; 83880; 84100; 84439; 84443; 84484; 85025; 85379; 86780; 87635; 93005; 93225; 93306; 93970; 96374; 97161; 99284; A4649; G0378; J1644; J1938; J3475; J8499; Q9967; A9270; G0480